=== PATIENT | male | born 1955 | race Hispanic/Latino ===

== ENCOUNTER 2017-05-18 01:15 | Inpatient (IN) | payer MEDICAID, SELFPAY ==
[2017-05-18 03:27] LABS: #Lymphocytes 1.2 thou/uL (1.20-3.40); #Monocytes 0.7 thou/uL (0.11-0.59); #Neutrophils 4.5 thou/uL (1.40-6.50); %Basophils 0.4 % (0.0-1.0); %Eosinophils 0.7 % (0.0-10.0); %Lymphocytes 18.4 % (21.0-51.0); %Monocytes 10.6 % (0.0-10.0); Hematocrit 36.1 % (42.0-52.0); Mean Platelet Volume 8.5 fL (7.4-10.4); Red Blood Cell (RBC) Count 3.63 mill/uL (4.70-6.10); White Blood Cell (WBC) Count 6.5 thou/uL (4.8-10.8)
[2017-05-18 03:47] LABS: ALT (SGPT) 83 U/L (8-55); AST (SGOT) 82 U/L (5-34); Alkaline Phosphatase 113 U/L (40-150); Anion Gap 14 mmol/L (10-20); BUN (Urea Nitrogen) 7 mg/dL (8.4-25.7); Bilirubin, Total 0.4 mg/dL (0.2-1.2); Calc. Creatinine Clearance 0 mL/min (70-130); Calcium 8.5 mg/dL (7.8-10.44); Carbon Dioxide 20 mmol/L (22-29); Chloride 102 mmol/L (98-107); Estimated GFR-MDRD 83; Globulin 3.9 g/dL (2.4-3.5); Magnesium 1.7 mg/dL (1.6-2.6); Protein, Total 6.9 g/dL (6.0-8.3)
[2017-05-18 03:51] LABS: Troponin I Less than 0.010 ng/mL (< 0.028)
[2017-05-18] MEDS ORDERED: Multivitamins, Adult 10 ML, Thiamine HCl 100 MG, Folic Acid 1 MG in Dextrose 5 %-0.45 %... IV SCH ×4 (05:00)
[2017-05-18 06:17] LABS: Bilirubin Negative (Negative); Blood, Urine Negative (Negative); Glucose, Urine (Dipstick) >=1000 mg/dL (Negative); Ketone, Urine Negative (Negative); Nitrite Negative (Negative); Protein, Urine (Dipstick) Negative (Neg-Trace); Urobilinogen 0.2 mg/dL (0.2-1.0)
--- NOTE | 2017-05-18 08:20 | RAD ---
PORTABLE CHEST: HISTORY: Chest pain. The patient was found down. FINDINGS: There is patchy atelectasis and/or infiltrate in the right lung base. There is also a small right-si de pneumothorax seen in the right apex and along the right lateral chest wall estimated in the 15-20% range. The left lung appears clear. Heart and mediastinum unremarkable. IMPRESSION: 1. Right pneumothorax. 2. Right basilar atelectasis or infiltrate. Findings were discussed with Dr. Cuevas. CODE CR POS: [facility]
[2017-05-18] MEDS ORDERED: Piperacillin/Tazobactam 3.375 GM in Sodium Chloride 0.9% 100 ML IVPB ONE (08:30)
--- NOTE | 2017-05-18 08:43 | HP ---
PRIMARY CARE PHYSICIAN: The patient states he does not have a primary care physician. CHIEF COMPLAINT: Found down at home. HISTORY OF PRESENT ILLNESS: The history of present illness is taken from the patient, who does not r emember much about the event, so therefore, the history is somewhat limited. The patient admits that he was drinking at home yesterday and then just basically fell down. He is not really sure what hap pened after that, but says that family brought him to the hospital. It is reported by the ER physici cora that he had an unwitnessed fall at home and they are unclear whether or not he hit anything on his head or hit anything on its way down. The patient says that he does have some pain on his right doris e and his right ribs, but otherwise no complaints. He denies having any complaints prior to the fall , such as having chest pain or shortness of breath. He denies any extremity weakness. He denies fee ling dizzy or lightheaded and currently he has basically no complaints. A CT scan was done in the ER to rule out any significant head injury or bleed. There is no evidence of any subdural; however, th ere was a finding concerning in the left putamen, a hypodensity of indeterminate age or indeterminate hypodensity in the left putamen and unclear whether or not this represents an area of ischemia, so t herefore he is being placed in observation for possible acute stroke. REVIEW OF SYSTEMS: CONSTITUTIONAL: There have been no fevers, chills, no night sweats, no weight lo ss. HEENT: He denies any headaches, no dizziness, no visual changes, no sore throat, rhinorrhea, ne ck pain, no adenopathy. PULMONARY: No hemoptysis, no cough, no wheezing. CARDIOVASCULAR: He denie s any chest pain, no shortness of breath, no PND, no orthopnea. GASTROINTESTINAL: No abdominal pain , no nausea, no vomiting, no change in bowels. GENITOURINARY: No urinary frequency, hematuria, no h esitancy. NEUROLOGIC: No focal weakness. No seizures. PSYCHIATRIC: No symptoms of anxiety or dep ression. SKIN AND INTEGUMENT: No skin changes. No rash. PAST MEDICAL HISTORY: Significant for diabetes mellitus type 2, hypertension, hepatitis C. 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 PAST SURGICAL HISTORY: He has had toe amputation on the first and second toe that was in 2015. ALLERGIES: No known drug allergies. SOCIAL HISTORY: He denies smoking to me. He says that he drinks about 7 beers daily. He is single, has 3 children. CODE STATUS: FULL CODE. FAMILY HISTORY: He denies any history of any chronic medical illnesses, this was asked and reviewed. MEDICATIONS: He says he is not currently on any medications. PHYSICAL EXAMINATION: GENERAL: He is alert and oriented x4. He appears to be in no acute distress. VITAL SIGNS: Blood pressure was 125/77, heart rate 80, respiratory rate is 16, temperature is 97.6. HEENT: Pupils are equal, round, and reactive. Extraocular muscles are intact. His sclerae are anic teric. Throat: There is no erythema, no exudates. NECK: No adenopathy, no bruits. LUNGS: Clear. There is no wheezing, no rales. CARDIOVASCULAR: He has normal S1, S2. There is no S3 or S4. No murmurs, clicks. No rubs. ABDOMEN: Soft, nontender, nondistended. Positive for bowel sounds. No rebound, no guarding. EXTREMITIES: There is no edema. NEUROLOGIC: Neurologically, his cranial nerves II-XII are intact. He has good upper and lower extre mity strength. It is symmetric and even and essentially nonfocal. LABORATORY DATA: White blood cell count 6.5, hemoglobin 12.3, hematocrit 36.1, platelet count is 125 . INR is 1.3. Sodium 132, potassium 3.7, chloride is 102, CO2 is 20, BUN is 7, creatinine 0.93, glu cose was 501. UA was negative. Plasma alcohol level was 173 mg per deciliter. ASSESSMENT AND PLAN: 1. This is a 61-year-old gentleman who was admitted status post a fall at home. He was noted to hav e a very high blood alcohol level, actually in the toxic range. He also had a very high blood glucos e level as well; however, thankfully there was no evidence of diabetic ketoacidosis and also had a CT scan showing an area in the left putamen which could represent an acute stroke. The patient will be placed in observation. We will be obtaining an MRI as well as a carotid Doppler and echo to rule ou t cerebrovascular accident. He has a history of diabetes and hypertension which his diabetes appears to be grossly out of control. He admits to taking absolutely no medications and also admits to not seeing any physicians lately. For the plan regarding his diabetes, we will review his old record and start him back on the medications that he had been previously receiving. It appears as if he had be en on Lantus insulin in the past and we will also place him on a sliding scale. I suspect that he wo uld benefit from an SHELLEY inhibitor as well with regards to both diabetes and for hypertension. We james l place him on a low dose aspirin. 2. For chronic alcohol abuse, he will be placed on thiamine, folate, and multivitamins either IV or orally and place him on withdrawal precautions and once he is more stabilized, we will do some brief counseling on alcohol abuse and he also would likely benefit from case management to determine what s ome of his outpatient medical needs are.
--- NOTE | 2017-05-18 10:16 | RAD ---
PORTABLE CHEST: HISTORY: Followup pneumothorax. COMPARISON: Exam performed at 2:54 a.m. FINDINGS: Small right pneumothorax again noted. This is seen in the right apex and along the right lateral basilio st wall, unchanged from the earlier film. Possibly some mild right basilar atelectasis which is less pronounced on the current study. No acute interval change. IMPRESSION: Right pneumothorax again seen without significant interval change. POS: [facility]
[2017-05-18 10:58] LABS: Troponin I 0.022 ng/mL (< 0.028)
--- NOTE | 2017-05-18 12:16 | CT ---
PRELIMINARY REPORT/[facility]/EMERGENCY AFTER HOURS PROCEDURE: Addendum created by Alexander Correa MD on 05/18/2017 5:41 AM Central Time ([place] & [place]) THIS REPORT CONTAINS FINDINGS THAT MAY BE CRITICAL TO PATIENT CARE. The findings and recommendation w ere verbally communicated via telephone conference with BOO NEWSOME at 5:41 AM PSYCHIATRIC NURSING AIDE on 05/18/2017. T he findings and recommendation were acknowledged and understood. Initial Report created on 05/18/2017 5:27 AM Central Time ([place] & [place]) EXAM: CT Head Without Intravenous Contrast CLINICAL HISTORY: 61 years old, male; Injury or trauma; Fall; Initial encounter; Abrasion; Not specified; Patient HX: M 61 presented to ed by ems for unwitnessed fall at home. Pt reports r chest pain, probably from hittin g something on the way down. Family reports they found him on the floor after unwitnessed fall. Pt re ports he was drinking tonight around 8 - 10 beers, which he never does. Ems reports patient had d sti ck of 574. 1 l of ns was given in transit. TECHNIQUE: Axial computed tomography images of the head/brain without intravenous contrast. COMPARISON: No relevant prior studies available. FINDINGS: Mild cerebral volume loss. Hypodensity in the putamen and subinsula on the left. Chronic small vessel disease. No intracranial hemorrhage. No mass, mass effect or midline shift. No hydrocephalus or extra-axial fluid collections. Ventricles, cortical sulci and basal cisterns are appropriate for age without effacement. Posterior fossa sana cisterna magna present. Martines-white matter differentiation is preserved. No dense MCA sign. Atherosclerosis of the intracranial vasculature. Orbits are unremarkable. Paranasal sinuses are clear. Mastoid air cells are clear. No acute fracture. Extra calvarial soft tissues unremarkable. IMPRESSION: Indeterminate hypodensity in the putamen and subinsula on the left may represent ischemia in the righ t clinical setting. Correlate clinically and recommend MRI for further evaluation. Thank you for allowing us to participate in the care of your patient. Dictated and Authenticated by: Alexander Correa MD 05/18/2017 5:27 AM Central Time ([place] & [place]) FINAL REPORT CT HEAD WITHOUT CONTRAST: Multiple axial tomograms were obtained through the head without IV enhancement. Ventricles are normal size and position. There is an abnormal area of low attenuation in the left basal ganglia involving region of the putame n. This is suspicious for a subacute lacunar infarct. Recommend MRI to assess for restricted diffus ion. These findings were described on preliminary report and I am in agreement with the preliminary report. POS: [facility]
--- NOTE | 2017-05-18 14:58 | ER ---
DATE OF SERVICE: 05/18/2017 HISTORY OF PRESENT ILLNESS: Mr. Florence is a 61-year-old gentleman, who was drinking at home yeste rday and fell. He has been evaluated with a CT of his head, which shows multifocal undetermined age infarcts. He also was found on chest x-ray to have a small right pneumothorax. This was at 2:00 a.m . We repeated his chest x-ray at 9:30 and his right-sided pneumothorax is unchanged. The patient is currently resting comfortably in the emergency department without chest pain, shortnes s of breath, or other complaints. PAST MEDICAL HISTORY: 1. Diabetes mellitus. 2. Hypertension. 3. Hepatitis C. PAST SURGICAL HISTORY: Amputation of the first and second toes of the foot. ALLERGIES: None. SOCIAL HISTORY: He drinks a significant amount of alcohol and does not use tobacco. MEDICATIONS: None. PHYSICAL EXAMINATION LUNGS: Clear bilaterally. HEART: Rhythm is regular. ABDOMEN: Soft and nontender. EXTREMITIES: No edema. CHEST X-RAY: I have reviewed his chest x-ray series. ASSESSMENT AND PLAN: Right-sided pneumothorax after a fall. He has had no progression of his pneumo thorax over the course of 7 hours. He is being admitted for his neurological findings. We will repe at his chest x-ray tomorrow in the morning.
[2017-05-18] MEDS ORDERED: Lorazepam 2 MG/ML VIAL SLOW IVP PRN (14:59)
[2017-05-18] MEDS ORDERED: hydrALAZINE 20 MG/ML VIAL SLOW IVP PRN (14:59)
[2017-05-18] MEDS ORDERED: Dextrose 5% in Water 1,000 ML IV PRN (14:59)
[2017-05-18] MEDS ORDERED: Dextrose 50% Abboject 50 ML SYRINGE SLOW IVP PRN (14:59)
[2017-05-18] MEDS ORDERED: Acetaminophen 325 MG TAB PO PRN (14:59)
[2017-05-18] MEDS ORDERED: Aspirin 81 mg Enteric Coated Tablet PO SCH (15:30)
[2017-05-18] MEDS ORDERED: Famotidine 20 MG TAB PO SCH (15:30)
[2017-05-18] MEDS ORDERED: ADMIXTURE FEE SC SCH (15:30)
[2017-05-18] MEDS ORDERED: INSULIN DETEMIR SC SCH (15:30)
[2017-05-18 16:33] VITALS: BMI 19.3
--- NOTE | 2017-05-18 16:48 | ULT ---
ULTRASOUND WITH DOPPLER DUPLEX CAROTID: DATE: 05-18-17 HISTORY: 61-year-old male status post acute CVA. Technique: Grayscale, color flow, and spectral analysis of the major arteries of neck. FINDINGS: Little or no plaque identified. Highest peak systolic velocities in the internal carotid arteries are 75 cm/s on the right, and also 75 cm/s on the left. The ICA/CCA ratios are 0.8 on the right and 0.7 cm on the left. The vertebral artery flow is antegrade bilaterally. IMPRESSION: No hemodynamically significant stenosis. POS: [facility]
[2017-05-18] MEDS: HumaLOG 300 UNITS/3 ML VIAL SC PRN (18:04)
[2017-05-18] MEDS: ADMIXTURE FEE SC SCH (22:05)
[2017-05-18] MEDS: INSULIN DETEMIR SC SCH (22:05)
[2017-05-18] MEDS: Atorvastatin Calcium 10 MG TAB PO SCH (22:05)
[2017-05-18] MEDS: Famotidine 20 MG TAB PO SCH (22:05)
[2017-05-19 05:46] LABS: #Basophils 0.1 thou/uL (0.0-0.2); #Eosinphils 0.1 thou/uL (0.0-0.7); #Lymphocytes 3.3 thou/uL (1.20-3.40); #Monocytes 1.6 thou/uL (0.11-0.59); #Neutrophils 7.6 thou/uL (1.40-6.50); %Basophils 0.4 % (0.0-1.0); %Eosinophils 0.5 % (0.0-10.0); %Lymphocytes 26.2 % (21.0-51.0); %Monocytes 12.4 % (0.0-10.0); Hematocrit 34.6 % (42.0-52.0); Mean Platelet Volume 7.9 fL (7.4-10.4); Red Blood Cell (RBC) Count 3.52 mill/uL (4.70-6.10); White Blood Cell (WBC) Count 12.6 thou/uL (4.8-10.8)
[2017-05-19 06:03] LABS: Anion Gap 8 mmol/L (10-20); BUN (Urea Nitrogen) 10 mg/dL (8.4-25.7); Calc. Creatinine Clearance 93 mL/min (70-130); Calcium 8.5 mg/dL (7.8-10.44); Carbon Dioxide 27 mmol/L (22-29); Chloride 103 mmol/L (98-107); Cholesterol 86 mg/dl (< 200 Desired); Estimated GFR-MDRD Greater than 90; LDL Cholesterol, Calculated 44 mg/dL
--- NOTE | 2017-05-19 08:31 | RAD ---
FRONTAL RADIOGRAPH CHEST: DATE: 05/19/17. COMPARISON: 05/18/17. HISTORY: Right-sided pneumothorax. FINDINGS: A right-sided pneumothorax is again noted. Comparison to the prior study is somewhat limited secondary to shallow inspiration on this exam. The right-sided pneumothorax appears similar when compared to the prior examination, although it may hav e slightly increased in size, particularly its inferior/lateral component. There is no mediastinal s hift. The left lung appears clear. No left-sided pneumothorax. IMPRESSION: Stable to slightly larger right-sided pneumothorax. POS: [facility]
[2017-05-19] MEDS: ADMIXTURE FEE SC SCH ×2 (09:34→21:01)
[2017-05-19] MEDS: INSULIN DETEMIR SC SCH ×2 (09:34→21:01)
[2017-05-19] MEDS: Famotidine 20 MG TAB PO SCH ×2 (09:35→21:01)
[2017-05-19] MEDS: Aspirin 81 mg Enteric Coated Tablet PO SCH (09:35)
[2017-05-19] MEDS ORDERED: Potassium Chloride 20 MEQ TAB PO SCH (11:00)
--- NOTE | 2017-05-19 11:13 | PDOC.PN ---
- Subjective Encounter Start Date: 05/19/17 Encounter Start Time: 11:11 Mr. Florence was seen today in follow-up. He does not have any complaints. He denies chest pain or difficulty breathing. He denies feeling dizzy or off balance. - Objective Resuscitation Status: Resuscitation Status FULL:Full Resuscitation MAR Reviewed: Yes Vital Signs & Weight: Vital Signs (12 hours) Temp Pulse Resp BP BP Pulse Ox 05/19/17 10:00 133/62 05/19/17 08:00 98.4 F 80 20 94 L 05/19/17 07:58 98.4 F 80 20 133/62 94 L 05/19/17 04:41 99 F 82 18 112/56 L 92 L 05/19/17 02:55 134/64 05/19/17 00:38 99.5 F 87 18 134/64 93 L Weight Weight 121 lb 14.4 oz I&O: 05/18/17 05/19/17 05/20/17 06:59 06:59 06:59 Intake Total 250 480 Balance 250 480 Result Diagrams: 05/19/17 05:14 05/19/17 05:14 Additional Labs: Accuchecks 05/19/17 05/18/17 05/18/17 06:10 21:12 17:04 POC Glucose 75 193 H 273 H Phys Exam - Physical Examination HEENT: PERRLA Respiratory: no wheezing, no rales, no rhonchi, clear to auscultation bilateral Cardiovascular: RRR, no significant murmur Gastrointestinal: soft, non-tender, positive bowel sounds Musculoskeletal: no edema Dx/Plan (1) Ataxia Code(s): R27.0 - ATAXIA, UNSPECIFIED Status: Acute (2) Alcohol intoxication Status: Acute (3) Fatty liver Code(s): K76.0 - FATTY (CHANGE OF) LIVER, NOT ELSEWHERE CLASSIFIED Status: Acute (4) Hepatitis C Code(s): B19.20 - UNSPECIFIED VIRAL HEPATITIS C WITHOUT HEPATIC COMA Status: Acute (5) Hypertension Code(s): I10 - ESSENTIAL (PRIMARY) HYPERTENSION Status: Acute - Plan * Ataxia, and feeling off balance- this has improved. Still awaiting MRI results , but suspect this was mainly a combination of alcohol intoxication, and diabetic peripheral neuropathy * DM- blood glucose is much improved- will discharge him on NPH insulin * Continue aspirin , low dose daily * Home after MRI, as patient's deficits have completely resolved. If he infact has a CVA, then will add a statin at discharge.
[2017-05-19] MEDS: HumaLOG 300 UNITS/3 ML VIAL SC PRN ×2 (12:12→17:47)
[2017-05-19] MEDS: Multivitamins, Adult 10 ML, Folic Acid 1 MG, Thiamine HCl 100 MG in Dextrose 5 %-0.45 %... IV SCH ×4 (12:13)
--- NOTE | 2017-05-19 19:28 | MRI ---
MRI BRAIN: Date: 05-19-17 Provided Clinical History: TIA. FINDINGS: Comparison is made with the CT examination dated 05-18-17. The ventricular system appears normal in size and morphology. There is no evidence for intracranial h emorrhage or mass effect. There is increased signal intensity on the diffusion weighted sequences inv olving the left lentiform nucleus, demonstrating T2 shine through based on the ADC map and FLAIR sequ ence. There is, however, restricted diffusion seen within the left caudate nucleus as well as left ce ntrum semiovale, compatible with recent infarction. No additional significant intracranial signal abnormality is evident. Occasional foci of FLAIR and T2 hyperintensity involve the cerebral white matter compatible with chronic microvascular ischemic clancy ge. Appropriate flow voids are seen within the major intracranial vessels. The extracranial soft tissues and calvarial marrow signal demonstrate an unremarkable MR appearance with the exception of minimal p aranasal sinus fluid. IMPRESSION: Restricted diffusion compatible with recent infarction involving the left caudate head and centrum se miovale with remote lacunar infarction involving the left lentiform nucleus. POS: [facility]
[2017-05-19] MEDS: Atorvastatin Calcium 10 MG TAB PO SCH (21:01)
--- NOTE | 2017-05-19 23:40 | CON ---
DATE OF CONSULTATION: 05/19/2017 REFERRING PROVIDER: Dr. Bam Asencio. REASON FOR CONSULTATION: Stroke. HISTORY OF PRESENT ILLNESS: Mr. Florence is a pleasant 61-year-old male who has been consu lted for evaluation of stroke. History is obtained from patient's medical chart as well as patient. Apparently, patient was drinking at home yesterday and he fell down. He was brought to the emergenc y room and the family had reported that it was unwitnessed fall and it is not sure whether he had any weakness or not. His blood alcohol level was within toxic range. He had a CT head without contrast done, which showed some hypodensity in the left putamen for which we are being consulted for further evaluation. He did not have any focal weakness. There was no speech changes or vision changes. He did not complaining of any headache, chest pain, palpitation, nausea, vomiting, abdominal pain. PAST MEDICAL HISTORY: Significant for hypertension, diabetes, hepatitis C. PAST SURGICAL HISTORY: Significant for digit amputation on the left hand as well as in the toes. SOCIAL HISTORY: He drinks 7 beers on a daily basis. He denies smoking. He denies illicit drug use. FAMILY HISTORY: Noncontributory. CURRENT MEDICATIONS: Please review MAR. ALLERGIES: No known drug allergies. REVIEW OF SYSTEMS: As mentioned above in the HPI, otherwise negative. PHYSICAL EXAMINATION: VITAL SIGNS: Blood pressure of 171/81, pulse of 85, temperature of 98.9, respirations of 20, O2 sats of 95% on room air. GENERAL: Well-developed, well-nourished male in no apparent distress. RESPIRATORY: Clear to auscultation bilaterally. CARDIOVASCULAR: Regular rate and rhythm. NEUROLOGIC: Mental status: Patient is awake, alert, oriented x3. Speech and language: Fluent spee ch. Cranial nerves: Pupils are 3 mm and reactive. Visual will are intact. External muscles are intact. No nystagmus is noted. Face is symmetric. Tongue and uvula midline. Motor exam showed nor mal tone and bulk with 5/5 strength in both upper extremities. Sensory: Sensation is intact and sym metric. Deep tendon reflexes 2+ reflexes in both upper and lower extremities. Babinski: Plantar re sponses flexion bilaterally. Coordination intact to loyldp-yyrz-vwaldm tapping bilaterally. LABORATORY DATA: Reviewed, which included CBC, CMP, lipid profile, urinalysis, and plasma alcohol le pan, which is significant for WBC of 12.6, hemoglobin 11.6, hematocrit of 34.6. Sodium 135, potassiu m 3.2, glucose of 182, plasma alcohol level was 173 mg per dL. IMAGING STUDIES: MRI brain without contrast was reviewed, which showed acute to subacute left basal ganglia ischemic infarct. Echocardiogram results were reviewed, which showed EF of more than 65% wit h mild aortic wall thickening and aortic regurgitation with mitral valve regurgitation, otherwise nor mal. Carotid Doppler results were reviewed, which showed no hemodynamically significant stenosis. IMPRESSION: 1. Left basal ganglia ischemic infarct. 2. Hypertension. 3. Heavy alcohol use. ASSESSMENT AND PLAN: Mr. Florence is a pleasant 61-year-old male who presented with the fa ll, he was found to have acute to subacute left basal ganglia ischemic infarct. This is likely secon james to poorly controlled risk factors. I have discussed with him at length and explained to him attila t he needs to control his blood pressure, diabetes, cholesterol, and avoid drinking alcohol. I agree with starting him on aspirin 325 mg daily for secondary stroke prevention. Consult PT, OT, speech t herapy for rehab evaluation. If physical and occupational therapy is deemed, the patient can be disc harged as an outpatient for outpatient therapy then the patient is okay to be discharged to home.
[2017-05-20] MEDS ORDERED: Metoprolol Tartrate 25 MG TAB PO SCH ×2 (02:00→09:00)
--- NOTE | 2017-05-20 08:36 | RAD ---
RADIOGRAPH CHEST 1 VIEW: Date: 05/20/2017 Time: 8:13 a.m. HISTORY: A 61-year-old male with right pneumothorax. Follow-up. COMPARISON: 05/19/2017 at 7:20 a.m. FINDINGS: The right pneumothorax has decreased in size, and currently occupies approximately 10-15% volume of r ight hemithorax. The right basilar infiltrate is unchanged. There is interval worsening of left bas ilar infiltrate. No cardiomegaly or pulmonary edema. Lateral costophrenic angles are not effaced. IMPRESSION: 1. Interval decrease in size of right pneumothorax. 2. Interval worsening of left basilar infiltrate. 3. Stable right basilar infiltrate. CARLOS [] POS: [facility]
--- NOTE | 2017-05-20 09:33 | PDOC.PN ---
- Subjective Encounter Start Date: 05/20/17 Encounter Start Time: 09:31 Mr. Florence was seen today in follow-up of acute CVA and Fall. He notes some pain on the right side of his chest when he takes in a deep breath. He says it' s mild however. - Objective Resuscitation Status: Resuscitation Status FULL:Full Resuscitation MAR Reviewed: Yes Vital Signs & Weight: Vital Signs (12 hours) Temp Pulse Resp BP Pulse Ox 05/20/17 08:00 99.1 F 74 16 141/78 H 95 05/20/17 03:56 99.1 F 75 18 158/77 H 97 Weight Weight 121 lb 14.4 oz I&O: 05/19/17 05/20/17 05/21/17 06:59 06:59 06:59 Intake Total 250 1260 1230 Balance 250 1260 1230 Result Diagrams: 05/19/17 05:14 05/19/17 05:14 Additional Labs: Accuchecks 05/20/17 05/19/17 05/19/17 05:46 20:59 17:13 POC Glucose 109 260 H 182 H 05/19/17 11:55 POC Glucose 239 H Phys Exam - Physical Examination HEENT: PERRLA Respiratory: no wheezing, no rales, no rhonchi, clear to auscultation bilateral Cardiovascular: RRR, no significant murmur Gastrointestinal: soft, non-tender, positive bowel sounds Musculoskeletal: no edema Dx/Plan (1) Ataxia Code(s): R27.0 - ATAXIA, UNSPECIFIED Status: Acute (2) Alcohol intoxication Status: Acute (3) Fatty liver Code(s): K76.0 - FATTY (CHANGE OF) LIVER, NOT ELSEWHERE CLASSIFIED Status: Acute (4) Hepatitis C Code(s): B19.20 - UNSPECIFIED VIRAL HEPATITIS C WITHOUT HEPATIC COMA Status: Acute (5) Hypertension Code(s): I10 - ESSENTIAL (PRIMARY) HYPERTENSION Status: Acute - Plan * Acute CVA- Neurology input appreciated- will increase the aspirin dose to 325mg, and will add a statin * Traumatic Pneumothorax- CV- surgery is managing- repeat CXR was noted * HTN- metoprolol was added last night, and will also add an SHELLEY-I given he is diabetic * DM- blood glucose is stable- continue insulin.
[2017-05-20] MEDS: Famotidine 20 MG TAB PO SCH (10:47)
[2017-05-20] MEDS: Aspirin 81 mg Enteric Coated Tablet PO SCH (10:47)
[2017-05-20] MEDS: Multivitamins, Adult 10 ML, Folic Acid 1 MG, Thiamine HCl 100 MG in Dextrose 5 %-0.45 %... IV SCH ×4 (10:47)
[2017-05-20] MEDS: ADMIXTURE FEE SC SCH (10:48)
[2017-05-20] MEDS: INSULIN DETEMIR SC SCH (10:48)
[2017-05-20] MEDS: HumaLOG 300 UNITS/3 ML VIAL SC PRN ×2 (12:42→16:48)
[2017-05-20 15:48] VITALS: TEMP 98.1
[2017-05-20 18:00] VITALS: BP 170/70
--- NOTE | 2017-05-21 02:20 | DIS ---
DATE OF ADMISSION: 05/18/2017 DATE OF DISCHARGE: 05/20/2017 The patient does not have a primary care physician. DISCHARGE DISPOSITION: Home. PRIMARY DISCHARGE DIAGNOSES: 1. Acute left caudate cerebrovascular accident. 2. Diabetes mellitus, uncontrolled. 3. Alcohol abuse. 4. Traumatic pneumothorax. 5. Hypertension. 6. History of hepatitis C. DISCHARGE MEDICATIONS: Include aspirin 325 mg p.o. daily, simvastatin 20 mg daily, metoprolol 25 mg twice a day, lisinopril 2.5 mg daily, NovoLog insulin 10 units twice a day, ciprofloxacin 500 mg twic e a day for 7 days. PROCEDURES DONE DURING THE ADMISSION: The patient had a CT scan of the brain in which there was an i ndeterminate hypodensity in the putamen and the sub insula on the left, which may represent ischemia in the right setting. The patient also had an echocardiogram in which the ejection fraction was carlos mated at 65%. There was normal right ventricular size and function. The patient also had bilateral carotid Dopplers showing no hemodynamically significant stenosis. CODE STATUS: FULL CODE. ALLERGIES: No known drug allergies. HOSPITAL COURSE: Mr. Florence is a pleasant 61-year-old gentleman, who was brought to the emergency room after he was found down at home. He apparently had been drinking at least 7 or 8 beers prior t o the fall. A CT scan showed an area in the left putamen, which was worrisome for a possible stroke. There was no evidence of any bleed or hemorrhage. He was brought in for observation. Also in the emergency room, it was determined he had a traumatic pneumothorax on the right side as well. He was evaluated by Vascular Surgery and Thoracic Surgery regarding this. With regards to the stroke, the p atpoly was found to have a stroke documented by MRI of the brain, carotid Dopplers, as well as an ech o was obtained, both of which were essentially negative. There was no evidence of any atrial fibrill ation via telemetry. He was placed on aspirin, statin, and his blood pressure was managed, also he h ad been noncompliant with all medications and was started back on insulin. He was seen by case manag emjohanne to help with prescription medications. Apparently on a previous admission, paperwork was suppl ied to the patient to help with disability. With regards to the pneumothorax, this was felt that it should resolve spontaneously without any surgical intervention or chest tube and was improving by the time of discharge; however, there was some area of atelectasis on x-ray and he will be discharged ho mo on ciprofloxacin for this. The patient was subsequently discharged home in stable condition to ve a close outpatient followup.
[2017-05-21] MEDS ORDERED: Lisinopril 2.5 MG TAB PO SCH (09:00)
--- NOTE | 2017-05-31 11:18 | EKG ---
Test Reason : Blood Pressure : / mmHG Vent. Rate : 090 BPM Atrial Rate : 090 BPM P-R Int : 116 ms QRS Dur : 078 ms QT Int : 412 ms P-R-T Axes : 042 001 017 degrees QTc Int : 504 ms Normal sinus rhythm Prolonged QT Abnormal ECG Confirmed by BOO NEWSOME M.D. ([id number]), industrial editor SETH GAMEZ ([id number] on 05/31/2017 11:18:17 AM Referred By: Confirmed By:BOO NEWSOME M.D.
== END 2017-05-20 18:04 | disposition home or self-care (01) | DRG 65 ==
LOC: ERS 01:15 → ERHOLD 07:55 → 2SE 15:04
PROVIDERS: ADMIT Internal Medicine; ATTEND Internal Medicine
DX: I63.9 Cerebral infarction, unspecified (principal); S27.0XXA Traumatic pneumothorax, initial encounter; J98.11 Atelectasis; E11.65 Type 2 diabetes mellitus with hyperglycemia; F10.10 Alcohol abuse, uncomplicated; W19.XXXA Unspecified fall, initial encounter; I10 Essential (primary) hypertension; B19.20 Unspecified viral hepatitis C without hepatic coma; Z91.14 Patient's other noncompliance with medication regimen
CPT/HCPCS: 36415; 36416; 70450; 70551; 71010; 80048; 80053; 80061; 80307; 81003; 82553; 83735; 84484; 85025; 85610; 87040; 87086; 93005; 93306; 93880; 96361; 96365; 96366; 96368; A4216; G8978-GP-CI; G8979-GP-CI; G8980-GP-CI; G8987-GO-CH; G8988-GO-CH; G8989-GO-CH; J0360; J1815; J1956; J2543; J3411; J7042; J7050

== ENCOUNTER 2017-09-04 20:06 | Inpatient (IN) | payer SELFPAY ==
[2017-09-04 22:05] LABS: #Eosinphils 0.1 thou/uL (0.0-0.7); #Lymphocytes 2.2 thou/uL (1.20-3.40); #Monocytes 1.1 thou/uL (0.11-0.59); #Neutrophils 6.6 thou/uL (1.40-6.50); %Basophils 0.5 % (0.0-1.0); %Eosinophils 0.9 % (0.0-10.0); %Lymphocytes 21.9 % (21.0-51.0); %Monocytes 10.5 % (0.0-10.0); %Neutrophils 66.2 % (42.0-75.0); Hemoglobin 13.1 g/dL (14.0-18.0); Mean Corpuscular HGB CONC 34.7 g/dL (32.0-36.0); Mean Corpuscular Hemoglobin 32.8 pg (27.0-31.0); Mean Corpuscular Volume 94.6 fl (80.0-94.0); Mean Platelet Volume 7.2 fL (7.4-10.4); Platelet Count 207 thou/uL (130-400); RBC Distribution Width 13.1 % (11.5-14.5)
[2017-09-04 22:24] LABS: ALT (SGPT) 38 U/L (8-55); AST (SGOT) 44 U/L (5-34); Albumin 3.7 g/dL (3.5-5.0); Alkaline Phosphatase 155 U/L (40-150); Anion Gap 12 mmol/L (10-20); BUN (Urea Nitrogen) 14 mg/dL (8.4-25.7); Bilirubin, Total 0.8 mg/dL (0.2-1.2); Calc. Creatinine Clearance 0 mL/min (70-130); Calcium 9.3 mg/dL (7.8-10.44); Carbon Dioxide 25 mmol/L (22-29); Chloride 96 mmol/L (98-107); Estimated GFR-MDRD 73; Globulin 4.6 g/dL (2.4-3.5); Glucose 460 mg/dL (70-105); Protein, Total 8.3 g/dL (6.0-8.3); Sodium 129 mmol/L (136-145)
--- NOTE | 2017-09-04 22:27 | RAD ---
LEFT FOOT THREE VIEWS: 09/04/17 HISTORY: 62-year-old male with history of pain for one week. COMPARISON: 12/09/16 Status post amputation changes of the first and second toes. Prominent vascular calcification. No acu te fracture or dislocation. No significant change from the prior study. IMPRESSION: Status post amputation changes of the first and second toe. No fracture or dislocation. Marked vascul ar calcifications. Stable from prior study. POS: JUAN
[2017-09-05 00:04] LABS: Bilirubin Negative (Negative); Blood, Urine Small (Negative); Clarity CLEAR (Clear); Glucose, Urine (Dipstick) >=1000 mg/dL (Negative); Leukocyte Negative (Negative); Nitrite Negative (Negative); Protein, Urine (Dipstick) 30 mg/dL (Neg-Trace); Specific Gravity, Urine 1.018 (1.002-1.036)
[2017-09-05] MEDS ORDERED: Insulin Regular 300 UNITS/3 ML VIAL ONE (00:05)
[2017-09-05 00:06] LABS: Bacteria/HPF None Seen HPF (None Seen); Hyaline Casts/LPF 0-3 HYALINE CAST LPF (0-3 Hyaline); Squamous Epithelial None Seen HPF (0-3); WBC/HPF None Seen HPF (0-3)
[2017-09-05] MEDS ORDERED: Acetaminophen 325 MG TAB PO PRN (01:20)
[2017-09-05] MEDS ORDERED: Calcium Carbonate 500 MG ChewTAB PO PRN (01:20)
[2017-09-05] MEDS ORDERED: Dextrose 50% Abboject 50 ML SYRINGE SLOW IVP PRN (01:20)
[2017-09-05] MEDS ORDERED: Senokot 8.6 MG TAB PO PRN (01:20)
[2017-09-05] MEDS ORDERED: Ondansetron HCl/PF 4 MG/2 ML Vial IVP PRN (01:20)
[2017-09-05] MEDS ORDERED: Ondansetron ODT 4 MG TAB PO PRN (01:20)
[2017-09-05] MEDS ORDERED: Dextrose 5% in Water 1,000 ML IV PRN (01:20)
[2017-09-05] MEDS ORDERED: Nitroglycerin 0.4 MG TAB (25 Tab Bottle) PO PRN (01:28)
[2017-09-05] MEDS: Sodium Chloride 0.9% 1,000 ML IV SCH ×2 (01:52→17:12)
[2017-09-05] MEDS: Meropenem 1 GM in Sodium Chloride 0.9% 100 ML IVPB SCH ×3 (02:21→17:53)
[2017-09-05] MEDS: hydrALAZINE 20 MG/ML VIAL SLOW IVP PRN (02:24)
--- NOTE | 2017-09-05 02:29 | HP ---
DATE OF ADMISSION: 09/05/2017 The patient was seen on 09/05/2017. PRIMARY CARE PHYSICIAN: None. CHIEF COMPLAINT: Evaluation of drainage from the left foot wound. HISTORY OF PRESENT ILLNESS: The patient is a 62-year-old male with uncontrolled diabetes mellitus ty pe 2, presented to the emergency room with above complaints. The patient was admitted at this facility approximately 4 months ago with unresponsiveness. He was f ound to have acute left caudate CVA with uncontrolled diabetes mellitus type 2. He was started on as pirin along with insulin. Please note that at this time, patient does not take any medications. The patient presented to the emergency room with evaluation of drainage from the left foot wound. Ov er the last one week, he noticed some pain and swelling on the left foot along with redness. The pat poly has a history of left first and the second toe amputation in 2014. He noticed some drainage, wh ich was serosanguineous from the ball of the left foot. He denies any fever or chills. He also descr ibes numbness and tingling of bilateral lower extremities. In the emergency room, initial vital signs showed temperature 98, respiration 18, pulse 102, blood pr essure 199/108 with O2 saturation 96% on room air. His left foot x-ray was negative for any evidence of osteomyelitis. He was started on Zosyn, vancomycin, and Levaquin in the emergency room. PAST MEDICAL HISTORY: 1. Uncontrolled diabetes mellitus type 2. 2. Hypertension. 3. Chronic hepatitis C. 4. History of traumatic pneumothorax in 05/18 from the fall, resolved without any intervention. 5. Acute left CVA, currently not on aspirin. 6. Medication noncompliance. PAST SURGICAL HISTORY: Left first and second toe amputation in 2014. ALLERGIES: No known drug allergies. HOME MEDICATIONS: Reviewed with the patient and none. FAMILY HISTORY: Patient denies any chronic medical illness in his family. SOCIAL HISTORY: He denies any smoking. He drinks socially every week. He has a history of heavy al cohol abuse. REVIEW OF SYSTEMS: The following complete review of systems was negative, unless otherwise mentioned in the HPI or below: Constitutional: Weight loss or gain, ability to conduct usual activities. Sk in: Rash, itching. Eyes: Double vision, pain. ENT/Mouth: Nose bleeding, neck stiffness, pain, te nderness. Cardiovascular: Palpitations, dyspnea on exertion, orthopnea. Respiratory: Shortness of breath, wheezing, cough, hemoptysis, fever or night sweats. Gastrointestinal: Poor appetite, abdom inal pain, heartburn, nausea, vomiting, constipation, or diarrhea. Genitourinary: Urgency, frequenc y, dysuria, nocturia. Musculoskeletal: Pain, swelling. Neurologic/Psychiatric: Anxiety, depressio n. Allergy/Immunologic: Skin rash, bleeding tendency. PHYSICAL EXAMINATION: VITAL SIGNS: As discussed above. GENERAL: A 62-year-old male in no apparent distress. Pain controlled. HEENT: Head: Atraumatic, normocephalic. Sclerae are anicteric. Moist mucous membrane. No oral le pedro. NECK: Supple. No JVD, no carotid bruit. LUNGS: Clear to auscultation bilaterally. No wheezing, rales, or rhonchi. HEART: S1, S2 present, tachycardic. No murmur, rubs, or gallops appreciated. ABDOMEN: Soft, nontender, bowel sounds present. EXTREMITIES: No edema or calf tenderness. There is 1.5 x 1-cm linear and open diabetic ulcer on the ball of the left foot with some erythema over the ankles. There is serosanguineous drainage. Edges were raised and there was some surrounding edema. There was also some erythema around the ulcer. NEUROLOGIC: Grossly nonfocal. Moves all four extremities. There is diminished sensation to bilater al lower extremities. PSYCHIATRY: Alert, awake, oriented x3. SKIN: As discussed above. LYMPH NODES: No palpable lymph nodes in the neck. PERIPHERAL VASCULAR: Radial pulses palpable bilaterally. MUSCULOSKELETAL: No joint swelling or tenderness. LABORATORY AND DIAGNOSTIC FINDINGS: CBC showed WBC 10.0 with hemoglobin 13.1, hematocrit 37.9. Chem istries showed sodium 139 with blood sugar of 460. BUN 14, creatinine 1.04. Beta hydroxybutyrate wa s 0.2. Urinalysis was negative. X-ray of the foot by my review was negative for osteomyelitis or ga s. IMPRESSION: 1. Infected diabetic foot ulcer with surrounding cellulitis. 2. Uncontrolled diabetes mellitus type 2. 3. Medication noncompliance. 4. History of chronic alcohol abuse. 5. Chronic hepatitis C. 6. Uncontrolled hypertension. 7. 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 8. History of acute cerebrovascular accident in 05/2017. PLAN: The patient will be monitored on the medical floor. We will keep him n.p.o. for possible surg ical intervention. We will repeat labs including CRP in a.m. Consult wound care. Insulin sliding s alan with NPH 10 units b.i.d. IV fluids. Consult Infectious Disease, Dr. Kramer. Vancomycin and nolan openem. We will monitor vancomycin levels. Vital signs q.4 hourly for now. The patient was extensively counseled to be compliant with all of his medications. We will restart a spirin due to acute CVA in May. We will also resume lisinopril and metoprolol based on last dis charge summary due to elevated blood pressure. Plan of care was discussed with the patient, he stated understanding.
[2017-09-05] MEDS: Insulin Regular 300 UNITS/3 ML VIAL SC PRN ×2 (05:20→20:31)
[2017-09-05 06:00] LABS: Anion Gap 8 mmol/L (10-20); BUN (Urea Nitrogen) 13 mg/dL (8.4-25.7); Calc. Creatinine Clearance 153 mL/min (70-130); Calcium 8.7 mg/dL (7.8-10.44); Carbon Dioxide 26 mmol/L (22-29); Chloride 104 mmol/L (98-107); Estimated GFR-MDRD Greater than 90; Glucose 182 mg/dL (70-105); Magnesium 1.5 mg/dL (1.6-2.6); Potassium 3.8 mmol/L (3.5-5.1); Sodium 134 mmol/L (136-145)
[2017-09-05 06:21] LABS: Band 5 % (5-11); Hemoglobin 11.5 g/dL (14.0-18.0); Lymphocytes 15 % (21-51); MDiff Complete? YES; Mean Corpuscular HGB CONC 34.3 g/dL (32.0-36.0); Mean Corpuscular Hemoglobin 32.3 pg (27.0-31.0); Mean Platelet Volume 7.5 fL (7.4-10.4); Monocytes 20 % (0-10); Neutrophil 60 % (42-75); PLT Morphology Comment Appears Adequate; Platelet Count 178 thou/uL (130-400); RBC Distribution Width 13.2 % (11.5-14.5); RBC Morphology Normal; Red Blood Cell (RBC) Count 3.57 mill/uL (4.70-6.10); White Blood Cell (WBC) Count 9.9 thou/uL (4.8-10.8)
[2017-09-05] MEDS ORDERED: Magnesium 2 GM/NS 0.9% 50 ML 2 GM in Premix Bag 1 BAG IVPB SCH (07:00)
[2017-09-05] MEDS ORDERED: Magnesium 2 GM/NS 0.9% 100 ML 2 GM in Premix Bag 1 BAG IVPB SCH (07:15)
[2017-09-05] MEDS ORDERED: Enoxaparin Sodium 40 MG/0.4 ML SYRINGE SC SCH (09:00)
[2017-09-05] MEDS: NPH, Human Insulin Isophane 300 UNIT/3 ML VIAL SC SCH ×2 (10:07→20:31)
[2017-09-05] MEDS: Folic Acid 1 MG TAB PO SCH (10:09)
[2017-09-05] MEDS: Lisinopril 10 MG TAB PO SCH ×2 (10:09→20:30)
[2017-09-05] MEDS: Aspirin 325 MG TAB PO SCH (10:09)
[2017-09-05] MEDS: Multivit, Therapeutic 1 TAB PO SCH (10:09)
[2017-09-05] MEDS: Metoprolol Tartrate 25 MG TAB PO SCH ×2 (10:09→20:30)
[2017-09-05] MEDS: Vancomycin HCl 1 GM in Premix Bag 1 BAG IVPB SCH (12:32)
[2017-09-05] MEDS ORDERED: Iopamidol 370 76% 50 ML VIAL FS ONE (13:27)
[2017-09-05] MEDS ORDERED: Lidocaine 1% (PF) 30 ML VIAL ONE (13:42)
[2017-09-05] MEDS ORDERED: Midazolam HCl 2 mg/2 ml Vial ONE (14:07)
[2017-09-05] MEDS ORDERED: Fentanyl 100 MCG/2 ML VIAL ONE (14:07)
[2017-09-05 14:15] VITALS: BMI 24.7
[2017-09-05] MEDS ORDERED: hydrALAZINE 20 MG/ML VIAL ONE (14:18)
--- NOTE | 2017-09-05 14:23 | CON ---
DATE OF CONSULTATION: 09/05/2017 REASON FOR CONSULTATION: Evaluate patient's vascular status in regards to the left foot nonhealing u lcer. HISTORY OF PRESENT ILLNESS: Mr. Florence is a noncompliant diabetic male who has had multiple admis sions with complications from diabetes mellitus. He underwent a left foot toe amputations and debrid ement in 2014. At that time, he was noted to have good ankle dorsalis pedis Doppler signals and a tr iphasic posterior tibial Doppler signal. The patient takes no medicines at home. He has been noncompliant with any sort of medical followup. PAST MEDICAL HISTORY: 1. Diabetes mellitus. 2. Hypertension. 3. Chronic hepatitis C. 4. History of cerebrovascular accident. PAST SURGICAL HISTORY: Amputation of toes in 2014. ALLERGIES: None. MEDICATIONS: None. SOCIAL HISTORY: He does not use tobacco. REVIEW OF SYSTEMS: Not performed due to language barrier - our interview was performed through an in terpreter. PHYSICAL EXAMINATION: GENERAL: This is a diminutive gentleman without complaint. VITAL SIGNS: Temperature is 98.1, pulse is 70 and regular, blood pressure is 172/83. NECK: Supple, without bruit. CHEST: Clear bilaterally. HEART: Rhythm is regular. There are no murmurs. ABDOMEN: Soft and nontender. EXTREMITIES: There is no edema. His left foot is wrapped. VASCULAR: Reveals palpable carotid, radial, and femoral pulses bilaterally. He has Doppler signals only in his right dorsalis pedis and posterior tibial area. The left posterior tibial Doppler signal is biphasic. The dorsalis pedis Doppler signal at the ankle is monophasic. ASSESSMENT AND PLAN: Noncompliant man with history of previous peripheral vascular disease and toe a mputations. He has a nonhealing ulcer on his foot. He has been admitted, started on antibiotics. T he vascular status is in question and we will plan for angiograms to evaluate if we can improve inflo w into his foot today.
--- NOTE | 2017-09-05 16:17 | OP ---
DATE OF OPERATION: 09/05/2017 PREOPERATIVE DIAGNOSES: History of peripheral vascular disease with left foot nonhealing ulcer. POSTOPERATIVE DIAGNOSES: History of peripheral vascular disease with left foot nonhealing ulcer. PROCEDURES: 1. Ultrasound-guided vascular access. 2. Abdominal aortogram. 3. Left common femoral artery angiogram. 4. Left popliteal artery angiogram with runoff. ANESTHESIA: A 1% lidocaine for local/1 mg Versed/25 mcg fentanyl for IV sedation. TOTAL FLUORO TIME: 3.1 minutes. TOTAL CONTRAST: 16 mL. DESCRIPTION OF PROCEDURE: After consent was obtained, the patient was brought to laborer/grade check, placed in supine position on the laborer/grade check table. Appropriate anesthesia monitor was placed. IV sedation was begun. Groins were prepped and draped in usual sterile fashion. Using ultrasound guidance, the righ t groin was anesthetized with 1% lidocaine. Percutaneous access of the common femoral artery was per formed using ultrasound guidance. A micropuncture sheath was placed followed by a 5-Setswana sheath ov er a 0.35 guidewire. Contra catheter was passed in the upper abdominal aorta. Hand-injected aortogr am was performed showing normal aortoiliac, common iliac, internal iliac, and external iliac arteries bilaterally. There was no obstructive disease. Contra catheter was used to guide a [place] guidewi re over the abdominal aortic bifurcation into the iliac arteries. The angled glide catheter was then used to guide the tip of the catheter into the common femoral artery. Hand-injected arteriogram was performed, and using digital angiography contrast was chased from groin down to the knee. Common fe moral, profunda femoris, and superficial femoral arteries were all free of any significant atheroscle rotic encroachment. There was calcification in the vessel gauthier. Angled glide catheter was guided d own to the level of the knee joint. The popliteal artery was then injected with 2 separate views ill uminating the tibial arteries. Anterior tibial, posterior tibial, and peroneal arteries were all wid ajay patent. The peroneal artery terminated at the ankle. Anterior tibial and posterior tibial arter ies passed down onto the foot. The posterior tibial artery terminated just posterior to the posterio r malleolus. The dorsalis pedis terminated at the mid foot with multiple collaterals. Catheters and guidewires were removed. Manual pressure was held for hemostasis. The patient was transferred to r ecovery area in stable condition. This patient has no interventional nor bypassable lesions to aid in the inflow and healing. If he co ntinues to have difficulty with this foot, he will require amputation.
[2017-09-05] MEDS: Enoxaparin Sodium 40 MG/0.4 ML SYRINGE SC SCH (20:30)
[2017-09-05] MEDS: Simvastatin 20 MG TAB PO SCH (20:30)
[2017-09-06] MEDS: Vancomycin HCl 1 GM in Premix Bag 1 BAG IVPB SCH ×2 (00:11→11:27)
--- NOTE | 2017-09-06 01:04 | PDOC.PN ---
- Subjective Encounter Start Date: 09/05/17 Encounter Start Time: 16:00 Subjective: nsg notes rev, aziza ovn, pt seen post procedurally, no new c/o, no new quest -: denies any pain/ numbness/ tingling in his LE - Objective Resuscitation Status: Resuscitation Status FULL:Full Resuscitation Vital Signs & Weight: Vital Signs (12 hours) Temp Pulse Resp BP BP Pulse Ox 09/06/17 00:00 99.6 F 82 20 133/73 97 09/05/17 20:30 129/75 09/05/17 20:27 98.4 F 91 20 97 09/05/17 19:54 98.4 F 91 20 129/75 97 09/05/17 17:30 97.3 F L 87 14 153/81 H 100 Weight Admit Weight 209 lb 7.024 oz Weight 126 lb 6.4 oz I&O: 09/04/17 09/05/17 09/06/17 06:59 06:59 06:59 Intake Total 500 975 Output Total 550 1325 Balance -50 -350 Result Diagrams: 09/05/17 04:22 09/05/17 04:22 Additional Labs: Accuchecks 09/05/17 09/05/17 09/05/17 19:55 11:32 04:36 POC Glucose 231 H 135 H 203 H 09/05/17 03:36 POC Glucose 179 H Phys Exam - Physical Examination Constitutional: NAD thin-appearing lying in bed HEENT: PERRLA, sclera anicteric, oral pharynx no lesions slightly dry mm Respiratory: no wheezing, no rales, no rhonchi, clear to auscultation bilateral limited ant exam Cardiovascular: RRR, no significant murmur, no rub Gastrointestinal: soft, positive bowel sounds did not remove dressing from LLE/ foot to examine during this visit Neurological: moves all 4 limbs Psychiatric: normal affect Dx/Plan - Plan * infected, diabetic foot ulcer * empiric vanc, merrem d1 * apprec ID C/s * apprec surg c/s IDDM * SSI, diabetic diet * chronically poor control hx hepatitis C, appears to be stable HTN, monitor * prn anti hypertensive regimen hx CVA, no new neurological changes from previously described baselines medication noncompliance * places patient at high risk for further medical complications * recommend discussing barriers to compliance with patient as he is noncompliant with almost all aspects of his care including follow up and medications * t/c addressed advanced goals of care with patient as his chronic medical issues develop into end stage medical issues diet: diabetic, cardiac activity: as adrien, will likely need PT eval during hospitalization dvt ppx Review of Systems - Review of Systems Constitutional: sweats - Medications/Allergies Allergies/Adverse Reactions: Allergies Allergy/AdvReac Type Severity Reaction Status Date / Time No Known Allergies Allergy Verified 09/05/17 02:03 Medications: Current Medications Acetaminophen (Tylenol) 650 mg PO Q4H PRN PRN Reason: Headache/Fever or Pain Last Admin: 09/06/17 09:23 Dose: 650 mg Aspirin (Aspirin) 325 mg PO DAILY [facility] Last Admin: 09/06/17 09:25 Dose: 325 mg Calcium Carbonate (Tums) 1,000 mg PO Q4H PRN PRN Reason: Heartburn or Indigestion Dextrose/Water (Dextrose 50%) 25 gm SLOW IVP PRN PRN PRN Reason: Hypoglycemia Enoxaparin Sodium (Lovenox) 40 mg SC 2100 [facility] Last Admin: 09/05/17 20:30 Dose: 40 mg Folic Acid (Folvite) 1 mg PO DAILY [facility] Last Admin: 09/06/17 09:24 Dose: 1 mg Glucagon (Glucagon) 1 mg IM PRN PRN PRN Reason: Hypoglycemia Hydralazine HCl (Apresoline) 10 mg SLOW IVP Q4H PRN PRN Reason: SBP Greater Than 180 Last Admin: 09/05/17 02:24 Dose: 10 mg Dextrose/Water (D5w) 1,000 mls @ 0 mls/hr IV .Q0M PRN; As Directed PRN Reason: Hypoglycemia Meropenem 1 gm/ Sodium (Chloride) 100 mls @ 200 mls/hr IVPB 0200,1000,1800 [facility] Last Admin: 09/06/17 09:25 Dose: 100 mls Sodium Chloride (Normal Saline 0.9%) 1,000 mls @ 100 mls/hr IV .Q10H [facility] Stop: 09/08/17 01:31 Last Admin: 09/06/17 07:30 Dose: Not Given Vancomycin HCl 1 gm/ Device 200 mls @ 200 mls/hr IVPB 1200,2359 [facility] Last Admin: 09/06/17 11:27 Dose: 200 mls Insulin Human NPH (Humulin N) 10 unit SC BID [facility] Last Admin: 09/06/17 09:25 Dose: 10 unit Insulin Human Regular (Humulin R) 0 units SC .MILD SLIDING SCALE PRN PRN Reason: Mild Correctional Scale Last Admin: 09/06/17 11:28 Dose: 3 unit Insulin Human Regular (Humulin R) 0 units SC .BEDTIME SLIDING SC PRN PRN Reason: Bedtime Correctional Scale Last Admin: 09/05/17 20:31 Dose: 2 unit Lisinopril (Zestril) 10 mg PO BID [facility] Last Admin: 09/06/17 09:24 Dose: 10 mg Metoprolol Tartrate (Lopressor) 25 mg PO BID [facility] Last Admin: 09/06/17 09:24 Dose: 25 mg Miscellaneous Medication (Pharmacy To Dose) 1 each IVPB ONE PRN PRN Reason: Pharmacy to dose Stop: 10/05/17 01:21 Multivitamins (Theragran) 1 tab PO DAILY [facility] Last Admin: 09/06/17 09:24 Dose: 1 tab Nitroglycerin (Nitrostat) 0.4 mg PO Q5MIN PRN PRN Reason: Chest Pain Ondansetron HCl (Zofran Odt) 4 mg PO Q6H PRN PRN Reason: Nausea/Vomiting Ondansetron HCl (Zofran) 4 mg IVP Q6H PRN PRN Reason: Nausea/Vomiting Senna (Senokot) 2 tab PO HSPRN PRN PRN Reason: Constipation Simvastatin (Zocor) 20 mg PO [facility] Last Admin: 09/05/17 20:30 Dose: 20 mg Thiamine HCl (Thiamine) 100 mg PO DAILY [facility] Last Admin: 09/06/17 09:24 Dose: 100 mg
[2017-09-06] MEDS: Meropenem 1 GM in Sodium Chloride 0.9% 100 ML IVPB SCH ×3 (02:22→17:35)
[2017-09-06] MEDS: Sodium Chloride 0.9% 1,000 ML IV SCH ×3 (02:25→17:36)
[2017-09-06] MEDS: Folic Acid 1 MG TAB PO SCH (09:24)
[2017-09-06] MEDS: Multivit, Therapeutic 1 TAB PO SCH (09:24)
[2017-09-06] MEDS: Metoprolol Tartrate 25 MG TAB PO SCH ×2 (09:24→20:34)
[2017-09-06] MEDS: Lisinopril 10 MG TAB PO SCH ×2 (09:24→20:33)
[2017-09-06] MEDS: NPH, Human Insulin Isophane 300 UNIT/3 ML VIAL SC SCH ×2 (09:25→20:34)
[2017-09-06] MEDS: Aspirin 325 MG TAB PO SCH (09:25)
[2017-09-06] MEDS: Insulin Regular 300 UNITS/3 ML VIAL SC PRN ×2 (11:28→20:34)
--- NOTE | 2017-09-06 14:12 | PDOC.PN ---
- Subjective Encounter Start Date: 09/06/17 Encounter Start Time: 09:00 patient is seen today, Afghan speaking, speaks some belarusian, he said he would need disability letter and advised to see his PCP for a detailed disability report. - Objective Resuscitation Status: Resuscitation Status FULL:Full Resuscitation MAR Reviewed: Yes Vital Signs & Weight: Vital Signs (12 hours) Temp Pulse Resp BP BP BP Pulse Ox 09/06/17 09:24 176/86 H 09/06/17 08:00 98.4 F 75 18 173/86 H 98 09/06/17 07:47 98.5 F 69 20 09/06/17 04:00 98.5 F 69 20 122/63 97 09/06/17 03:59 97 Weight Admit Weight 209 lb 7.024 oz Weight 126 lb 6.4 oz I&O: 09/05/17 09/06/17 09/07/17 06:59 06:59 06:59 Intake Total 500 2363 Output Total 550 1925 Balance -50 438 Result Diagrams: 09/05/17 04:22 09/05/17 04:22 Additional Labs: Accuchecks 09/06/17 09/06/17 09/05/17 11:29 05:01 19:55 POC Glucose 210 H 98 231 H 09/05/17 11:32 POC Glucose 135 H Radiology Reviewed by me: Yes Phys Exam - Physical Examination HEENT: PERRLA, moist MMs Neck: no nodes, no JVD Respiratory: no wheezing, no rales Cardiovascular: RRR, no significant murmur Gastrointestinal: soft, non-tender Musculoskeletal: no edema, pulses present Neurological: non-focal, normal sensation Psychiatric: normal affect, A&O x 3 Dx/Plan (1) Type 2 diabetes, uncontrolled, with leg or foot ulcer Code(s): [id number] - Status: Acute (2) Left foot infection Code(s): L08.9 - LOCAL INFECTION OF THE SKIN AND SUBCUTANEOUS TISSUE, UNSP Status: Acute Comment: Continue on IV merpenam, ID following, Angiogram Did not reveal any aciute blockages and Recommeded mendical maagement or if needed Amputation for Non healing infected foot ulcer. (3) PVD (peripheral vascular disease) Code(s): I73.9 - PERIPHERAL VASCULAR DISEASE, UNSPECIFIED Status: Acute Comment: Chronic, Continue Ob Aspirin and Statin. (4) Hepatitis C carrier Code(s): B18.2 - CHRONIC VIRAL HEPATITIS C Status: Acute (5) Hypertension Code(s): I10 - ESSENTIAL (PRIMARY) HYPERTENSION Status: Acute Qualifiers: Hypertension type: essential hypertension Qualified Code(s): I10 - Essential (primary) hypertension Comment: COntinue to Monitor. Will restrt home Meds. - Plan cont current plan of care, continue antibiotics, PT/OT, social service liaison * . - Discharge Day Encounter end time: 09:35 Review of Systems - Review of Systems Constitutional: negative: fever, chills, sweats, weakness, malaise, other Eyes: negative: Pain, Vision Change, Conjunctivae Inflammation, Eyelid Inflammation, Redness, Other ENT: negative: Ear Pain, Ear Discharge, Nose Pain, Nose Discharge, Nose Congestion, Mouth Pain, Mouth Swelling, Throat Pain, Throat Swelling, Other Respiratory: negative: Cough, Dry, Shortness of Breath, Hemoptysis, SOB with Excertion, Pleuritic Pain, Sputum, Wheezing Cardiovascular: negative: chest pain, palpitations, orthopnea, paroxysmal nocturnal dyspnea, edema, light headedness, other Gastrointestinal: negative: Nausea, Vomiting, Abdominal Pain, Diarrhea, Constipation, Melena, Hematochezia, Other Musculoskeletal: negative: Neck Pain, Shoulder Pain, Arm Pain, Back Pain, Hand Pain, Leg Pain, Foot Pain, Other Skin: negative: Rash, Lesions, Justin, Bruising, Other - Medications/Allergies Allergies/Adverse Reactions: Allergies Allergy/AdvReac Type Severity Reaction Status Date / Time No Known Allergies Allergy Verified 09/05/17 02:03 Medications: Current Medications Acetaminophen (Tylenol) 650 mg PO Q4H PRN PRN Reason: Headache/Fever or Pain Last Admin: 09/06/17 09:23 Dose: 650 mg Aspirin (Aspirin) 325 mg PO DAILY [facility] Last Admin: 09/06/17 09:25 Dose: 325 mg Calcium Carbonate (Tums) 1,000 mg PO Q4H PRN PRN Reason: Heartburn or Indigestion Dextrose/Water (Dextrose 50%) 25 gm SLOW IVP PRN PRN PRN Reason: Hypoglycemia Enoxaparin Sodium (Lovenox) 40 mg SC 2100 [facility] Last Admin: 09/05/17 20:30 Dose: 40 mg Folic Acid (Folvite) 1 mg PO DAILY [facility] Last Admin: 09/06/17 09:24 Dose: 1 mg Glucagon (Glucagon) 1 mg IM PRN PRN PRN Reason: Hypoglycemia Hydralazine HCl (Apresoline) 10 mg SLOW IVP Q4H PRN PRN Reason: SBP Greater Than 180 Last Admin: 09/05/17 02:24 Dose: 10 mg Dextrose/Water (D5w) 1,000 mls @ 0 mls/hr IV .Q0M PRN; As Directed PRN Reason: Hypoglycemia Meropenem 1 gm/ Sodium (Chloride) 100 mls @ 200 mls/hr IVPB 0200,1000,1800 [facility] Last Admin: 09/06/17 09:25 Dose: 100 mls Sodium Chloride (Normal Saline 0.9%) 1,000 mls @ 100 mls/hr IV .Q10H [facility] Stop: 09/08/17 01:31 Last Admin: 09/06/17 07:30 Dose: Not Given Vancomycin HCl 1 gm/ Device 200 mls @ 200 mls/hr IVPB 1200,2359 [facility] Last Admin: 09/06/17 11:27 Dose: 200 mls Insulin Human NPH (Humulin N) 10 unit SC BID [facility] Last Admin: 09/06/17 09:25 Dose: 10 unit Insulin Human Regular (Humulin R) 0 units SC .MILD SLIDING SCALE PRN PRN Reason: Mild Correctional Scale Last Admin: 09/06/17 11:28 Dose: 3 unit Insulin Human Regular (Humulin R) 0 units SC .BEDTIME SLIDING SC PRN PRN Reason: Bedtime Correctional Scale Last Admin: 09/05/17 20:31 Dose: 2 unit Lisinopril (Zestril) 10 mg PO BID [facility] Last Admin: 09/06/17 09:24 Dose: 10 mg Metoprolol Tartrate (Lopressor) 25 mg PO BID [facility] Last Admin: 09/06/17 09:24 Dose: 25 mg Miscellaneous Medication (Pharmacy To Dose) 1 each IVPB ONE PRN PRN Reason: Pharmacy to dose Stop: 10/05/17 01:21 Multivitamins (Theragran) 1 tab PO DAILY [facility] Last Admin: 09/06/17 09:24 Dose: 1 tab Nitroglycerin (Nitrostat) 0.4 mg PO Q5MIN PRN PRN Reason: Chest Pain Ondansetron HCl (Zofran Odt) 4 mg PO Q6H PRN PRN Reason: Nausea/Vomiting Ondansetron HCl (Zofran) 4 mg IVP Q6H PRN PRN Reason: Nausea/Vomiting Senna (Senokot) 2 tab PO HSPRN PRN PRN Reason: Constipation Simvastatin (Zocor) 20 mg PO [facility] Last Admin: 09/05/17 20:30 Dose: 20 mg Thiamine HCl (Thiamine) 100 mg PO DAILY [facility] Last Admin: 09/06/17 09:24 Dose: 100 mg
[2017-09-06] MEDS: hydrALAZINE 20 MG/ML VIAL SLOW IVP PRN (17:03)
[2017-09-06] MEDS: Enoxaparin Sodium 40 MG/0.4 ML SYRINGE SC SCH (20:33)
[2017-09-06] MEDS: Simvastatin 20 MG TAB PO SCH (20:33)
--- NOTE | 2017-09-06 22:16 | CON ---
DATE OF CONSULTATION: 09/06/2017 REASON FOR CONSULTATION: Left foot drainage and swelling with tenderness. HISTORY OF PRESENT ILLNESS: A 62-year-old with a history of type 2 diabetes, chronic hepatitis C wit h previous complications left foot with amputation of the first and second toes left side who is brou ght in because of tenderness and what he describes as a blister with drainage at the bottom aspect of the second toe left foot. The patient has a history of fairly recent CVA in the subcortical area of the left side caudate nucleus for which he is managing with aspirin. No fever or chills. No respir atory symptoms or abdominal pain, no diarrhea. PAST MEDICAL HISTORY: Diabetes type 2, hypertension, chronic hepatitis C which has not been treated, pneumothorax, CVA, neuropathy; amputation, left first and second toes. PAST SURGICAL HISTORY: As above. ALLERGIES: None. CURRENT MEDICATIONS: Tylenol, aspirin, Tums, dextrose, Lovenox, Folvite, Apresoline, Humulin insulin , Zestril, meropenem, and vancomycin. SOCIAL HISTORY: Never a smoker. History of alcohol dependency syndrome in the past. FAMILY HISTORY: Noncontributory. PHYSICAL EXAMINATION: VITAL SIGNS: Temperature max 98.5, blood pressure 170/86, pulse 75, respirations 18, O2 saturation 9 8%. GENERAL: There is no distress, oriented. SKIN: Skin lesions show a left foot with a slit-like opening at the skin of the base of the second M PJ at the amputation site. No redness, no swelling, no drainage noted. No lymphadenopathy. HEENT: Ocular movements conjugate. Oral cavity normal. Numerous missing teeth. NECK: Supple. LUNGS: With symmetric clear breath sounds. HEART: S1, S2, regular rate. ABDOMEN: Soft, not distended. Pulses are diminished in dorsalis pedis and I could not feel poplitea ls. The patient has had a vascular evaluation with Dr. Arvizu which did not show any lesion that was amenable to revascularization. EXTREMITIES: He moves extremities on command. NEUROLOGIC: Awake, alert, and oriented. LABORATORY DATA: The white cell count 10 and 9.9, hemoglobin 11, platelets 178. Sodium 134, creatin ine 0.69, AST 44, ALT 38, alkaline phosphatase 155, albumin 3.7. Urinalysis is not remarkable except for glycosuria. Microbiology with culture, I believe from the foot drainage. This is a swab cultur e probably reflects colonization rather than true invasive infection. There is a foot x-ray from 09/2017, medication changes, vascular calcification. No other changes. ASSESSMENT: 1. Type 2 diabetes with peripheral vascular disease with not amenable to revascularization. 2. Prior amputation first and second toes, now with evidence of drainage following blister, drainage of serosanguineous inflammatory process has resolved now. DISCUSSION: Differential diagnosis includes a deep inflammatory process with osteomyelitis versus ju st superficial associated with tissue injury from neuropathy and pressure induced changes with bliste ring. We will check an MRI scan with contrast; if it is normal, then discontinue without antimicrobi al therapy. Proper footwear would be important to prevent future recurrence of the same issue. If t here is evidence of osteomyelitis and he will need protracted treatment with IV antimicrobial therapy .
[2017-09-07] MEDS: Vancomycin HCl 1 GM in Premix Bag 1 BAG IVPB SCH ×3 (00:05→23:48)
[2017-09-07] MEDS: Meropenem 1 GM in Sodium Chloride 0.9% 100 ML IVPB SCH ×3 (01:55→17:15)
[2017-09-07] MEDS: Sodium Chloride 0.9% 1,000 ML IV SCH ×3 (05:42→23:48)
[2017-09-07] MEDS: Metoprolol Tartrate 25 MG TAB PO SCH ×2 (09:14→20:32)
[2017-09-07] MEDS: Folic Acid 1 MG TAB PO SCH (09:14)
[2017-09-07] MEDS: NPH, Human Insulin Isophane 300 UNIT/3 ML VIAL SC SCH ×2 (09:14→20:33)
[2017-09-07] MEDS: Aspirin 325 MG TAB PO SCH (09:14)
[2017-09-07] MEDS: Lisinopril 10 MG TAB PO SCH ×2 (09:15→20:33)
[2017-09-07] MEDS: Multivit, Therapeutic 1 TAB PO SCH (09:15)
[2017-09-07] MEDS: Insulin Regular 300 UNITS/3 ML VIAL SC PRN (12:55)
--- NOTE | 2017-09-07 14:00 | MRI ---
MRI LEFT FOOT NONCONTRAST: Date: 09/07/17 HISTORY: Toe amputation. Ulceration and swelling. FINDINGS: Marker was placed adjacent to the remaining portions of the second toe. Amputation of the first and s econd toe are apparent. Soft tissue edema of the superficial plantar tissues in the region of palpabl e concern are apparent. Underlying remaining bone marrow is within normal limits. No focal fluid juan carlos ections. IMPRESSION: Postoperative changes of the left foot with amputation of the first and second toes. Edema is apparen t within the plantar soft tissues. No evidence of bone marrow edema. POS: [facility]
--- NOTE | 2017-09-07 16:31 | PDOC.PN ---
- Subjective Encounter Start Date: 09/07/17 Encounter Start Time: 09:00 Patient Seen today, Difficult to Understand due to language barrier. He is Alert and oriented. pending MRI. - Objective Resuscitation Status: Resuscitation Status FULL:Full Resuscitation MAR Reviewed: Yes Vital Signs & Weight: Vital Signs (12 hours) Temp Pulse Resp BP BP BP Pulse Ox 09/07/17 11:32 98.1 F 68 16 172/91 H 98 09/07/17 09:15 177/86 H 09/07/17 08:00 98.3 F 74 16 177/86 H 97 09/07/17 07:11 98.6 F 75 16 Weight Admit Weight 209 lb 7.024 oz Weight 126 lb 6.4 oz I&O: 09/06/17 09/07/17 09/08/17 06:59 06:59 06:59 Intake Total 2363 3384 Output Total 1925 1605 Balance 438 1779 Result Diagrams: 09/05/17 04:22 09/05/17 04:22 Additional Labs: Accuchecks 09/07/17 09/07/17 09/06/17 11:26 05:40 20:10 POC Glucose 209 H 110 221 H 09/06/17 16:40 POC Glucose 111 H Radiology Reviewed by me: Yes Phys Exam - Physical Examination HEENT: PERRLA, moist MMs Neck: no nodes, no JVD Respiratory: no wheezing, no rales Cardiovascular: RRR, no significant murmur Gastrointestinal: soft, non-tender Musculoskeletal: no edema, pulses present Neurological: non-focal, normal sensation Lymphatic: no nodes Psychiatric: normal affect, A&O x 3 Skin: no rash, normal turgor Dx/Plan (1) Type 2 diabetes, uncontrolled, with leg or foot ulcer Code(s): [id number] - Status: Acute Comment: Will continue with SSI. (2) Left foot infection Code(s): L08.9 - LOCAL INFECTION OF THE SKIN AND SUBCUTANEOUS TISSUE, UNSP Status: Acute Comment: Continue on IV merpenam, ID following, Angiogram Did not reveal any aciute blockages and Recommeded mendical maagement or if needed Amputation for Non healing infected foot ulcer. (3) PVD (peripheral vascular disease) Code(s): I73.9 - PERIPHERAL VASCULAR DISEASE, UNSPECIFIED Status: Acute Comment: Chronic, Continue Ob Aspirin and Statin. (4) Hepatitis C carrier Code(s): B18.2 - CHRONIC VIRAL HEPATITIS C Status: Acute (5) Hypertension Code(s): I10 - ESSENTIAL (PRIMARY) HYPERTENSION Status: Acute Qualifiers: Hypertension type: essential hypertension Qualified Code(s): I10 - Essential (primary) hypertension Comment: COntinue to Monitor. Will restrt home Meds. - Plan cont current plan of care, continue antibiotics, PT/OT, social worker aide, respiratory therapy, incentive spirometry, DVT proph w/lovenox * . - Discharge Day Encounter end time: 09:35 Review of Systems - Review of Systems Eyes: negative: Pain, Vision Change, Conjunctivae Inflammation, Eyelid Inflammation, Redness, Other ENT: negative: Ear Pain, Ear Discharge, Nose Pain, Nose Discharge, Nose Congestion, Mouth Pain, Mouth Swelling, Throat Pain, Throat Swelling, Other Respiratory: negative: Cough, Dry, Shortness of Breath, Hemoptysis, SOB with Excertion, Pleuritic Pain, Sputum, Wheezing Cardiovascular: negative: chest pain, palpitations, orthopnea, paroxysmal nocturnal dyspnea, edema, light headedness, other Gastrointestinal: negative: Nausea, Vomiting, Abdominal Pain, Diarrhea, Constipation, Melena, Hematochezia, Other Genitourinary: negative: Dysuria, Frequency, Incontinence, Hematuria, Retention , Other Musculoskeletal: Leg Pain - Medications/Allergies Allergies/Adverse Reactions: Allergies Allergy/AdvReac Type Severity Reaction Status Date / Time No Known Allergies Allergy Verified 09/05/17 02:03 Medications: Current Medications Acetaminophen (Tylenol) 650 mg PO Q4H PRN PRN Reason: Headache/Fever or Pain Last Admin: 09/06/17 09:23 Dose: 650 mg Aspirin (Aspirin) 325 mg PO DAILY [facility] Last Admin: 09/07/17 09:14 Dose: 325 mg Calcium Carbonate (Tums) 1,000 mg PO Q4H PRN PRN Reason: Heartburn or Indigestion Dextrose/Water (Dextrose 50%) 25 gm SLOW IVP PRN PRN PRN Reason: Hypoglycemia Enoxaparin Sodium (Lovenox) 40 mg SC 2100 [facility] Last Admin: 09/06/17 20:33 Dose: 40 mg Folic Acid (Folvite) 1 mg PO DAILY [facility] Last Admin: 09/07/17 09:14 Dose: 1 mg Glucagon (Glucagon) 1 mg IM PRN PRN PRN Reason: Hypoglycemia Hydralazine HCl (Apresoline) 10 mg SLOW IVP Q4H PRN PRN Reason: SBP Greater Than 180 Last Admin: 09/06/17 17:03 Dose: 10 mg Dextrose/Water (D5w) 1,000 mls @ 0 mls/hr IV .Q0M PRN; As Directed PRN Reason: Hypoglycemia Meropenem 1 gm/ Sodium (Chloride) 100 mls @ 200 mls/hr IVPB 0200,1000,1800 [facility] Last Admin: 09/07/17 09:30 Dose: 100 mls Sodium Chloride (Normal Saline 0.9%) 1,000 mls @ 100 mls/hr IV .Q10H [facility] Stop: 09/08/17 01:31 Last Admin: 09/07/17 09:13 Dose: 1,000 mls Vancomycin HCl 1 gm/ Device 200 mls @ 200 mls/hr IVPB 1200,2359 [facility] Last Admin: 09/07/17 11:28 Dose: 200 mls Insulin Human NPH (Humulin N) 10 unit SC BID [facility] Last Admin: 09/07/17 09:14 Dose: 10 unit Insulin Human Regular (Humulin R) 0 units SC .MILD SLIDING SCALE PRN PRN Reason: Mild Correctional Scale Last Admin: 09/07/17 12:55 Dose: 3 unit Insulin Human Regular (Humulin R) 0 units SC .BEDTIME SLIDING SC PRN PRN Reason: Bedtime Correctional Scale Last Admin: 09/06/17 20:34 Dose: 2 unit Lisinopril (Zestril) 10 mg PO BID [facility] Last Admin: 09/07/17 09:15 Dose: 10 mg Metoprolol Tartrate (Lopressor) 25 mg PO BID [facility] Last Admin: 09/07/17 09:14 Dose: 25 mg Miscellaneous Medication (Pharmacy To Dose) 1 each IVPB ONE PRN PRN Reason: Pharmacy to dose Stop: 10/05/17 01:21 Multivitamins (Theragran) 1 tab PO DAILY [facility] Last Admin: 09/07/17 09:15 Dose: 1 tab Nitroglycerin (Nitrostat) 0.4 mg PO Q5MIN PRN PRN Reason: Chest Pain Ondansetron HCl (Zofran Odt) 4 mg PO Q6H PRN PRN Reason: Nausea/Vomiting Ondansetron HCl (Zofran) 4 mg IVP Q6H PRN PRN Reason: Nausea/Vomiting Senna (Senokot) 2 tab PO HSPRN PRN PRN Reason: Constipation Simvastatin (Zocor) 20 mg PO [facility] Last Admin: 09/06/17 20:33 Dose: 20 mg Thiamine HCl (Thiamine) 100 mg PO DAILY [facility] Last Admin: 09/07/17 09:14 Dose: 100 mg
[2017-09-07] MEDS: hydrALAZINE 20 MG/ML VIAL SLOW IVP PRN (17:49)
[2017-09-07] MEDS: Simvastatin 20 MG TAB PO SCH (20:32)
[2017-09-07] MEDS: Enoxaparin Sodium 40 MG/0.4 ML SYRINGE SC SCH (20:33)
[2017-09-08] MEDS: Meropenem 1 GM in Sodium Chloride 0.9% 100 ML IVPB SCH ×2 (02:07→10:38)
[2017-09-08] MEDS: Metoprolol Tartrate 25 MG TAB PO SCH (08:13)
[2017-09-08] MEDS: Lisinopril 10 MG TAB PO SCH (08:13)
[2017-09-08] MEDS: Multivit, Therapeutic 1 TAB PO SCH (08:13)
[2017-09-08] MEDS: NPH, Human Insulin Isophane 300 UNIT/3 ML VIAL SC SCH (08:13)
[2017-09-08] MEDS: Folic Acid 1 MG TAB PO SCH (08:13)
[2017-09-08] MEDS: Aspirin 325 MG TAB PO SCH (08:13)
[2017-09-08] MEDS: hydrALAZINE 20 MG/ML VIAL SLOW IVP PRN (11:30)
[2017-09-08] MEDS: Vancomycin HCl 1 GM in Premix Bag 1 BAG IVPB SCH (11:31)
[2017-09-08 11:54] VITALS: TEMP 97.7
[2017-09-08 13:32] VITALS: BP 159/90
--- NOTE | 2017-09-08 14:24 | DIS ---
ATTENDING PHYSICIAN: Dr. Sascha Hamlin DATE OF ADMISSION: 09/05/2017 DATE OF DISCHARGE: 09/08/2017 ADMITTING DIAGNOSIS: Left heel ulcer infection. DISCHARGE DIAGNOSES: 1. Left heel ulcer infection. 2. Infected diabetic foot ulcer with surrounding cellulitis. SECONDARY DIAGNOSES: 1. Type 2 diabetes mellitus. 2. Hypertension. 3. Chronic hepatitis C. 4. History of cerebrovascular accident. CONSULTANTS: Dr. Kramer from Infectious Disease. Other diagnostic investigations done during this admission are MRI of the left foot did not show any evidence of osteomyelitis. HISTORY OF PRESENT ILLNESS AND HOSPITAL COURSE: In brief, the patient is a 62-year-old male with [place] ontrolled type 2 diabetes mellitus, was admitted to this facility prior to this 4 months ago, was unr esponsive at that time and was found to have a left CVA with uncontrolled type 2 diabetes mellitus. He was started on aspirin and also insulin. The patient did not take any of those medications. The patient presented to the ER with evaluation of the drainage from his left foot wound over the last week, and he noted some pain and swelling in the left foot along with redness around it. He had a left first and second toe amputation in 2014 and noticed some drainage which was serosanguineous. Th patient was seen by Infectious Disease and initially thought that the patient would need to be eval uated for osteomyelitis, so MRI of the foot was done which did not show any evidence of osteomyelitis , but did show soft tissue infection. He was on Zosyn, vancomycin and levofloxacin. His white cells remained low, most likely from chronic hepatitis C infection, but did not spike any fever. His pain was well controlled. The patient was able to put his foot down and walk. There was not much of dra sheikh was coming out and the patient was advised to follow up with the [facility] and with the primary care physician in 1 week. The patient is discharged home in stable condition. PHYSICAL EXAMINATION: VITAL SIGNS: Blood pressures are 156/85, heart rate of 88, respiratory rate 18, saturation 98%. GENERAL: The patient is moderately built, well-nourished, does not appear in acute distress at this time. Alert, oriented x3. HEENT: Atraumatic, normocephalic. PERRLA. Extraocular movements are intact. Oral mucosa pink and moist. CARDIOVASCULAR: S1, S2 normal. No murmurs, no rubs or gallops. MUSCULOSKELETAL: No calf tenderness. No pedal edema. No joint tenderness, no joint swelling. Left heel wound looks stable and is well covered with dressings and no signs of any bleeding was noted. DISCHARGE MEDICATIONS: 1. Aspirin 81 mg daily. 2. Insulin 10 units subcu b.i.d. 3. Lisinopril 2.5 mg p.o. daily. 4. Metoprolol 20 mg p.o. b.i.d. 5. Simvastatin 20 mg p.o. daily. NEW MEDICATIONS: Doxycycline 100 mg p.o. b.i.d. Continue for 10 more days. 1. DISCHARGE INSTRUCTIONS: Continue activity as tolerated. Advised to follow up with primary care phys rod in 1-2 weeks. Advised to follow up with Dr. Kramer in 2 weeks to look for evidence of good woun d healing. Advised to return back to the ER if the patient has any persistent pain or any further bleeding or wo rsening of the infection. The patient is discharged home in stable condition. DIET: Continue with diabetic diet. ATTENDING PHYSICIAN: Dr. Sascha Hamlin. I spent 35 minutes spent on the discharge of this patient.
== END 2017-09-08 16:23 | disposition home or self-care (01) | DRG 300 ==
LOC: ERS 20:06 → T4-B 09-05 01:05
PROVIDERS: ADMIT Internal Medicine; ATTEND Internal Medicine
PROC: B41G1ZZ Fluoroscopy of Left Lower Extremity Arteries using Low Osmolar Contrast (ICD-10-PCS; principal; 2017-09-05)
DX: E11.51 Type 2 diabetes mellitus with diabetic peripheral angiopathy without gangrene (principal); L03.116 Cellulitis of left lower limb; E11.621 Type 2 diabetes mellitus with foot ulcer; L97.429 Non-pressure chronic ulcer of left heel and midfoot with unspecified severity; E11.65 Type 2 diabetes mellitus with hyperglycemia; B18.2 Chronic viral hepatitis C; I10 Essential (primary) hypertension; Z86.73 Personal history of transient ischemic attack (TIA), and cerebral infarction without residual deficits; Z91.14 Patient's other noncompliance with medication regimen; Z89.412 Acquired absence of left great toe; Z89.422 Acquired absence of other left toe(s)
CPT/HCPCS: 36247; 36415; 36416; 75710; 76942; 80048; 80053; 80202; 81003; 81015; 82010; 83605; 83735; 85025; 86140; 87040; 87070; 87077; 87086; 87186; 87205; 94760; 96365; 96367; 96372; 99152; C1760; C1769; C1887; J0360; J1644; J1650; J1815; J1956; J2001; J2185; J2250; J3010; J3370; J3475; J7050

== ENCOUNTER 2017-12-13 22:03 | Emergency (ER) | payer SELFPAY ==
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
== END 2017-12-14 01:00 | disposition home or self-care (01) ==
LOC: ERS 22:03
DX: S00.83XA Contusion of other part of head, initial encounter (principal); F10.10 Alcohol abuse, uncomplicated; E11.9 Type 2 diabetes mellitus without complications; Z89.412 Acquired absence of left great toe; Z89.422 Acquired absence of other left toe(s); V87.8XXA Person injured in other specified noncollision transport accidents involving motor vehicle (traffic), initial encounter
CPT/HCPCS: 70450; 70486; 72125

== ENCOUNTER 2018-01-04 10:19 | Inpatient (IN) | payer SELFPAY ==
[2018-01-04] MEDS ORDERED: MEROPENEM 1 GM/50 ML 1 GM in Premix Bag 1 BAG IVPB SCH (11:00)
[2018-01-04 11:24] LABS: INR-International Normal Ratio 1.5; Prothrombin Time 18.1 SEC (12.0-14.7)
[2018-01-04 11:25] LABS: PTT 40.3 SEC (22.9-36.1)
[2018-01-04 11:33] LABS: Band 14 % (5-11); Hemoglobin 10.7 g/dL (14.0-18.0); Lymphocytes 2 % (21-51); MDiff Complete? YES; Mean Corpuscular HGB CONC 35.4 g/dL (32.0-36.0); Mean Corpuscular Hemoglobin 33.1 pg (27.0-31.0); Mean Corpuscular Volume 93.5 fL (78.0-98.0); Mean Platelet Volume 7.3 fL (7.4-10.4); Metamyelocyte 1 % (0-0); Monocytes 6 % (0-10); Neutrophil 77 % (42-75); Platelet Count 283 thou/uL (130-400); RBC Distribution Width 11.4 % (11.5-14.5); Red Blood Cell (RBC) Count 3.21 mill/uL (4.70-6.10); White Blood Cell (WBC) Count 18.3 thou/uL (4.8-10.8)
[2018-01-04 11:42] LABS: ALT (SGPT) 37 U/L (8-55); AST (SGOT) 66 U/L (5-34); Albumin 2.8 g/dL (3.5-5.0); Alkaline Phosphatase 122 U/L (40-150); Anion Gap 16 mmol/L (10-20); BUN (Urea Nitrogen) 29 mg/dL (8.4-25.7); Bilirubin, Total 1.8 mg/dL (0.2-1.2); CK (CPK) 14 U/L (30-200); Calc. Creatinine Clearance 0 mL/min (70-130); Calcium 8.4 mg/dL (7.8-10.44); Carbon Dioxide 18 mmol/L (22-29); Chloride 96 mmol/L (98-107); Estimated GFR-MDRD 61; Globulin 5.1 g/dL (2.4-3.5); Glucose 241 mg/dL (70-105); Potassium 4.5 mmol/L (3.5-5.1); Protein, Total 7.9 g/dL (6.0-8.3); Sodium 125 mmol/L (136-145)
--- NOTE | 2018-01-04 12:24 | RAD ---
RADIOGRAPH LEFT ANKLE 3 VIEWS: Date: 01/04/18 Time: 1001 hours HISTORY: 62-year-old male with left ankle pain. FINDINGS: No fracture, dislocation, or subluxation. Diffuse soft tissue edema of the ankle. Extensive atheroscl erotic calcification. No DJD. IMPRESSION: 1. Soft tissue edema. 2. No fracture. 3. Atherosclerosis. POS: [facility]
--- NOTE | 2018-01-04 12:28 | RAD ---
LEFT FOOT 3 VIEWS: Date: 01/04/18 HISTORY: Swollen, discolored, oozing, amputation. COMPARISON: Radiograph from 09/04/17. FINDINGS: There is subcutaneous gas in the dorsal and plantar soft tissues surrounding the forefoot. There is a lso gas extending along the posterior soft tissues. There is osteopenia and erosion of the second and third metatarsal heads and necks. There is osteopen ia of the second and third metatarsal diaphyses. Large ulcer of the flap overlying the second amputation site. 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 POS: [facility]
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
--- NOTE | 2018-01-04 13:22 | RAD ---
RADIOGRAPH CHEST 1 VIEW: HISTORY: 62-year-old male for preoperative clearance. FINDINGS: There are no air space densities, pulmonary edema, pneumothorax, or cardiomegaly. The lateral costop hrenic angles are sharp. IMPRESSION: No acute cardiopulmonary findings. franko [] POS: [facility]
[2018-01-04] MEDS ORDERED: PROPOFOL 200 MG/20 ML VIAL ONE (14:59)
[2018-01-04] MEDS ORDERED: Fentanyl 100 MCG/2 ML VIAL ONE ×2 (15:01→15:19)
[2018-01-04] MEDS ORDERED: Midazolam HCl 2 mg/2 ml Vial ONE (15:19)
[2018-01-04] MEDS ORDERED: Propofol 500 MG/50 ML VIAL ONE (15:19)
[2018-01-04] MEDS ORDERED: Ketamine 50 MG/ML VIAL ONE (15:30)
[2018-01-04] MEDS ORDERED: Dextrose 50% Abboject 50 ML SYRINGE SLOW IVP PRN (16:06)
[2018-01-04] MEDS ORDERED: HYDROcodone/Acetaminophen 10/325 mg Tablet PO PRN (16:06)
[2018-01-04] MEDS ORDERED: Dextrose 5% in Water 1,000 ML IV PRN (16:06)
[2018-01-04] MEDS ORDERED: Ondansetron HCl/PF 4 MG/2 ML Vial IVP PRN (16:06)
[2018-01-04] MEDS ORDERED: Morphine 4 MG/ML Carpuject IVP PRN (16:06)
[2018-01-04] MEDS ORDERED: traMADol HCl 50 MG TAB PO PRN ×2 (16:12)
[2018-01-04] MEDS ORDERED: Acetaminophen 500 MG TAB PO PRN (16:12)
[2018-01-04] MEDS: Sodium Chloride 0.9% 1,000 ML IV SCH (17:38)
[2018-01-04] MEDS: Piperacillin/Tazobactam 3.375 GM in Sodium Chloride 0.9% 100 ML IVPB SCH (18:04)
[2018-01-04] MEDS: HumaLOG 300 UNITS/3 ML VIAL SC PRN ×2 (18:04→21:53)
[2018-01-04] MEDS: Atorvastatin Calcium 10 MG TAB PO SCH (21:51)
[2018-01-04] MEDS: Metoprolol Tartrate 25 MG TAB PO SCH (21:51)
[2018-01-04] MEDS: Famotidine 20 MG TAB PO SCH (21:52)
[2018-01-04] MEDS: NPH, Human Insulin Isophane 300 UNIT/3 ML VIAL SC SCH (21:52)
[2018-01-04] MEDS: Enoxaparin Sodium 40 MG/0.4 ML SYRINGE SC SCH (21:52)
--- NOTE | 2018-01-04 22:55 | OP ---
PREOPERATIVE DIAGNOSES: Gas gangrene, left foot. Gangrene, skin and subcutaneous tissue, left lateral ankle, foot. Neuropathic ulcer, plantar left foot. Noncompliant diabetic. POSTOPERATIVE DIAGNOSES: Gas gangrene, left foot. Gangrene, skin and subcutaneous tissue, left lateral ankle, foot. Neuropathic ulcer, plantar left foot. Noncompliant diabetic. PROCEDURE: Guillotine amputation of left lower leg just above the ankle. SURGEON: Dr. Rolando Hidalgo. ANESTHESIA: Regional. ESTIMATED BLOOD LOSS: 50 mL BLOOD TRANSFUSED: None. PROCEDURE IN DETAIL: Patient was taken to the operating room under regional anesthesia and intravenous sedation, left lower extremity was prepared with ChloraPrep, draped in routine fashion. Circumferential incision was made above the ankle, carried down the skin and subcutaneous tissue. Transected _fibula with bone cutters & tibia with the Gigli followed by ligation of vascular pedicles wit 2-0 silk ties. Sterile dressing applied. Patient tolerated the procedure well. Plan is return to the operating room in three days for below- the-knee amputation. [facility]
[2018-01-05] MEDS: Piperacillin/Tazobactam 3.375 GM in Sodium Chloride 0.9% 100 ML IVPB SCH ×4 (00:55→18:16)
[2018-01-05] MEDS: Sodium Chloride 0.9% 1,000 ML IV SCH ×2 (02:54→14:28)
[2018-01-05 06:01] LABS: ALT (SGPT) 27 U/L (8-55); AST (SGOT) 47 U/L (5-34); Albumin 2.1 g/dL (3.5-5.0); Alkaline Phosphatase 97 U/L (40-150); Anion Gap 8 mmol/L (10-20); BUN (Urea Nitrogen) 23 mg/dL (8.4-25.7); Bilirubin, Total 0.9 mg/dL (0.2-1.2); Calc. Creatinine Clearance 0 mL/min (70-130); Calcium 7.7 mg/dL (7.8-10.44); Carbon Dioxide 20 mmol/L (22-29); Chloride 110 mmol/L (98-107); Estimated GFR-MDRD Greater than 90; Globulin 3.3 g/dL (2.4-3.5); Glucose 102 mg/dL (70-105); Potassium 3.4 mmol/L (3.5-5.1); Protein, Total 5.4 g/dL (6.0-8.3); Sodium 135 mmol/L (136-145)
[2018-01-05 08:43] VITALS: BMI 21.6
[2018-01-05] MEDS: Famotidine 20 MG TAB PO SCH ×2 (10:01→21:48)
[2018-01-05] MEDS: Aspirin 325 mg Enteric Coated Tablet PO SCH (10:01)
[2018-01-05] MEDS: HYDROcodone/Acetaminophen 10/325 mg Tablet PO PRN (10:02)
[2018-01-05] MEDS: Lisinopril 2.5 MG TAB PO SCH (10:02)
[2018-01-05] MEDS: Metoprolol Tartrate 25 MG TAB PO SCH ×2 (10:02→21:48)
[2018-01-05] MEDS: NPH, Human Insulin Isophane 300 UNIT/3 ML VIAL SC SCH ×2 (10:43→21:49)
[2018-01-05] MEDS: Polyethylene Glycol 3350 17 GM Packet PO SCH (10:45)
--- NOTE | 2018-01-05 18:35 | PRG ---
DATE OF SERVICE: 01/05/2018 Mr. Florence is doing well today. OBJECTIVE: VITAL SIGNS: 97.6, 55, 104/67. Blood cultures are negative today. LABORATORY DATA: White count 18, hemoglobin 10, sodium 135, potassium 3.4, BUN 23, creatinine 0.66. ASSESSMENT AND PLAN: 1. Necrotizing gas gangrene, left foot, status post guillotine amputation, 01/04/2018. 2. Noncompliant diabetes mellitus. Hospitalist has been consulted, but they have not seen him. We will reconsult medical service for management of his diabetes. 3. Charitable rehab consult. PLAN: Conversion of guillotine amputation to below the knee amputation midweek.
[2018-01-05] MEDS ORDERED: HumaLOG 300 UNITS/3 ML VIAL SC PRN (21:02)
--- NOTE | 2018-01-05 21:03 | PDOC.PN ---
- Subjective Encounter Start Date: 01/05/18 Encounter Start Time: 10:30 Patient seen and examined for med mngt. No CP/SOB. Pain controlled. - Objective MAR Reviewed: Yes Vital Signs & Weight: Vital Signs (12 hours) Temp Pulse Pulse Resp BP BP Pulse Ox 01/05/18 16:30 55 L 16 104/67 95 01/05/18 11:00 97.6 F 61 12 150/84 H 98 01/05/18 10:02 67 158/79 H 01/05/18 09:02 65 122/75 Pulse Ox 01/05/18 16:30 01/05/18 11:00 01/05/18 10:02 01/05/18 09:02 98 Weight Weight 130 lb 1.164 oz I&O: 01/04/18 01/05/18 01/06/18 06:59 06:59 06:59 Intake Total 2120 Output Total 1050 Balance 1070 Result Diagrams: 01/04/18 11:10 01/05/18 04:58 Additional Labs: Accuchecks 01/05/18 01/05/18 01/05/18 16:25 11:02 05:59 POC Glucose 79 116 H 110 Phys Exam - Physical Examination Constitutional: NAD Respiratory: no wheezing, no rhonchi Cardiovascular: RRR, no rub Gastrointestinal: soft, non-tender, positive bowel sounds Neurological: moves all 4 limbs Dx/Plan - Plan DVT proph w/SCDs IMPRESSION: 1. DM2 - uncontrolled Cont NPH 10 units BID Cont sliding scale ACHS and 0200 2. Hypokalemia Will replace AM labs Check Mg in AM 3. HTN Cont Lisinopril Cont Metoprolol 4. HLD Cont Statins Thank you for this consultation. Will follow. Review of Systems - Review of Systems Respiratory: negative: Cough, Dry, Shortness of Breath, Hemoptysis, SOB with Excertion, Pleuritic Pain, Sputum, Wheezing Cardiovascular: negative: chest pain, palpitations, orthopnea, paroxysmal nocturnal dyspnea, edema, light headedness, other - Medications/Allergies Allergies/Adverse Reactions: Allergies Allergy/AdvReac Type Severity Reaction Status Date / Time No Known Allergies Allergy Verified 09/05/17 02:03 Medications: Current Medications Acetaminophen (Tylenol) 1,000 mg PO Q6H PRN PRN Reason: Moderate to Severe Pain (6-10) Hydrocodone Bitart/Acetaminophen ([place] 10/325) 1 tab PO Q6H PRN PRN Reason: Mild-Moderate Pain (1-5) Hydrocodone Bitart/Acetaminophen ([place] 10/325) 2 tab PO Q6H PRN PRN Reason: Severe Pain (7-10) Last Admin: 01/05/18 10:02 Dose: 2 tab Aspirin (Ecotrin) 325 mg PO DAILY [facility] Last Admin: 01/05/18 10:01 Dose: 325 mg Atorvastatin Calcium (Lipitor) 10 mg PO HS [facility] Last Admin: 01/04/18 21:51 Dose: 10 mg Dextrose/Water (Dextrose 50%) 25 gm SLOW IVP PRN PRN PRN Reason: Hypoglycemia Enoxaparin Sodium (Lovenox) 40 mg SC 2100 [facility] Last Admin: 01/04/18 21:52 Dose: 40 mg Famotidine (Pepcid) 20 mg PO BID [facility] Last Admin: 01/05/18 10:01 Dose: 20 mg Glucagon (Glucagon) 1 mg IM PRN PRN PRN Reason: Hypoglycemia Hydralazine HCl (Apresoline) 10 mg SLOW IVP Q4H PRN PRN Reason: SBP > 170 or DBP > 100 Dextrose/Water (D5w) 1,000 mls @ 0 mls/hr IV .Q0M PRN; As Directed PRN Reason: Hypoglycemia Sodium Chloride (Normal Saline 0.9%) 1,000 mls @ 100 mls/hr IV .Q10H [facility] Last Admin: 01/05/18 14:28 Dose: Not Given Piperacillin Sod/Tazobactam (Sod 3.375 gm/ Sodium Chloride) 100 mls @ 200 mls/ hr IVPB Q6HR [facility] Last Admin: 01/05/18 18:16 Dose: 100 mls Insulin Human Lispro (Humalog) 0 units SC .MODERATE SLIDING SC PRN PRN Reason: Moderate Correctional Scale Last Admin: 01/04/18 21:53 Dose: 4 unit Insulin Human NPH (Humulin N) 10 unit SC BID [facility] Last Admin: 01/05/18 10:43 Dose: 10 unit Lisinopril (Zestril) 2.5 mg PO DAILY [facility] Last Admin: 01/05/18 10:02 Dose: 2.5 mg Metoprolol Tartrate (Lopressor) 25 mg PO BID [facility] Last Admin: 01/05/18 10:02 Dose: 25 mg Morphine Sulfate (Morphine) 2 mg IVP Q2H PRN PRN Reason: Mild Pain (1-3) Morphine Sulfate (Morphine) 4 mg IVP Q2H PRN PRN Reason: Moderate Pain (4-6) Ondansetron HCl (Zofran) 4 mg IVP Q6H PRN PRN Reason: Nausea Polyethylene Glycol (Miralax) 17 gm PO DAILY [facility] Last Admin: 01/05/18 10:45 Dose: 17 gm Sodium Chloride (Flush - Normal Saline) 10 ml IVF PRN PRN PRN Reason: Saline Flush Tramadol HCl (Ultram) 50 mg PO Q6H PRN PRN Reason: Mild Pain (1-3) Last Admin: 01/05/18 05:59 Dose: 50 mg Tramadol HCl (Ultram) 100 mg PO Q6H PRN PRN Reason: Moderate Pain (4-6)
[2018-01-05] MEDS: Atorvastatin Calcium 10 MG TAB PO SCH (21:47)
[2018-01-05] MEDS: Enoxaparin Sodium 40 MG/0.4 ML SYRINGE SC SCH (21:48)
[2018-01-06] MEDS: Piperacillin/Tazobactam 3.375 GM in Sodium Chloride 0.9% 100 ML IVPB SCH ×4 (00:26→17:22)
[2018-01-06] MEDS: Sodium Chloride 0.9% 1,000 ML IV SCH (00:26)
[2018-01-06 07:24] LABS: Hemoglobin A1c 7.7 % (4.0-6.0)
[2018-01-06 07:32] LABS: Anion Gap 12 mmol/L (10-20); BUN (Urea Nitrogen) 21 mg/dL (8.4-25.7); Calc. Creatinine Clearance 87 mL/min (70-130); Calcium 7.4 mg/dL (7.8-10.44); Carbon Dioxide 18 mmol/L (22-29); Chloride 110 mmol/L (98-107); Estimated GFR-MDRD Greater than 90; Glucose 70 mg/dL (70-105); Potassium 3.2 mmol/L (3.5-5.1); Sodium 137 mmol/L (136-145)
[2018-01-06] MEDS: Potassium Chloride 10 MEQ TAB PO SCH (08:45)
[2018-01-06] MEDS: Metoprolol Tartrate 25 MG TAB PO SCH ×2 (08:45→20:32)
[2018-01-06] MEDS: Aspirin 325 mg Enteric Coated Tablet PO SCH (08:45)
[2018-01-06] MEDS: Lisinopril 2.5 MG TAB PO SCH (08:45)
[2018-01-06] MEDS: Famotidine 20 MG TAB PO SCH ×2 (08:47→20:32)
[2018-01-06] MEDS: NPH, Human Insulin Isophane 300 UNIT/3 ML VIAL SC SCH ×2 (08:47→23:37)
[2018-01-06] MEDS: Polyethylene Glycol 3350 17 GM Packet PO SCH (08:47)
[2018-01-06] MEDS ORDERED: Potassium Chloride 20 MEQ TAB PO SCH ×2 (13:15→14:15)
[2018-01-06] MEDS ORDERED: Magnesium Sulfate 2 GM in Sodium Chloride 0.9% 100 ML IVPB SCH (13:45)
--- NOTE | 2018-01-06 13:47 | PRG ---
DATE OF SERVICE: 01/06/2018 SUBJECTIVE: The patient is seen and examined at the bedside. He is not having much complaints to of tate. The night was uneventful. OBJECTIVE: VITAL SIGNS: Blood pressure is 159/94, pulse is 57, temperature is 97.6, respiratory rate is 16, O2 saturation is 98% on room air. HEENT: Head is atraumatic, normocephalic. Eyes: PERRLA. Sclerae is nonicteric. Oral mucosa moist. NECK: Supple, no lymphadenopathy. LUNGS: Clear. HEART: S1, S2 normal, no S3, no S4. ABDOMEN: Soft, nontender, bowel sounds are present. EXTREMITIES: Status post amputation of the left lower leg just above the ankle. NEUROLOGIC: He is alert and oriented x4. There is not any motor deficits present. Cranial nerves a re intact. LABORATORY DATA: Showed sodium of 137, potassium 3.2, chloride 110, CO2 18, creatinine 0.75, hemoglo bin A1c 7.7, calcium 7.4, magnesium 1.4. Glycemia is ranging from 79-127. IMPRESSION: 1. 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 2. Uncontrolled diabetes mellitus. At this point, much better on both long-acting and short-acting sliding scale insulins. 3. Hypokalemia and hypomagnesemia, we will replace both. 4. Hypertension, still an issue. We will make some adjustment on his medicine. 5. HDL on statin. 6. He will continue on his DVT prophylaxis with enoxaparin 40 mg subcutaneously once every 24 hours. 7. He will continue on his pain management as needed.
--- NOTE | 2018-01-06 15:17 | PRG ---
DATE OF SERVICE: 01/06/2018 SUBJECTIVE: Mr. Adrianna Florence is doing well today. OBJECTIVE: VITAL SIGNS: Stable, afebrile, 97.6, 57, and 159/74. LABORATORY DATA: His potassium is 3.2. Renal function is normal. Glucose is 118, 127. Hemoglobin A1c 7.7. Plan is for formal BKA tomorrow. He understands risks and benefits and questions answered. Replace potassium.
[2018-01-06] MEDS: hydrALAZINE 20 MG/ML VIAL SLOW IVP PRN (20:32)
[2018-01-06] MEDS: Atorvastatin Calcium 10 MG TAB PO SCH (20:33)
[2018-01-06] MEDS: Enoxaparin Sodium 40 MG/0.4 ML SYRINGE SC SCH (23:36)
[2018-01-07] MEDS: Piperacillin/Tazobactam 3.375 GM in Sodium Chloride 0.9% 100 ML IVPB SCH ×5 (00:05→23:00)
[2018-01-07] MEDS: Metoprolol Tartrate 25 MG TAB PO SCH ×2 (05:25→20:46)
[2018-01-07 06:31] LABS: Anion Gap 12 mmol/L (10-20); BUN (Urea Nitrogen) 14 mg/dL (8.4-25.7); Calc. Creatinine Clearance 95 mL/min (70-130); Calcium 7.7 mg/dL (7.8-10.44); Carbon Dioxide 18 mmol/L (22-29); Chloride 112 mmol/L (98-107); Estimated GFR-MDRD Greater than 90; Glucose 118 mg/dL (70-105); Potassium 4.6 mmol/L (3.5-5.1); Sodium 137 mmol/L (136-145)
[2018-01-07 06:47] LABS: Hemoglobin 10.1 g/dL (14.0-18.0); Mean Corpuscular HGB CONC 33.8 g/dL (32.0-36.0); Mean Corpuscular Hemoglobin 32.4 pg (27.0-31.0); Mean Corpuscular Volume 95.7 fL (78.0-98.0); Mean Platelet Volume 6.9 fL (7.4-10.4); Platelet Count 294 thou/uL (130-400); RBC Distribution Width 11.5 % (11.5-14.5); Red Blood Cell (RBC) Count 3.11 mill/uL (4.70-6.10); White Blood Cell (WBC) Count 6.8 thou/uL (4.8-10.8)
[2018-01-07 07:24] LABS: Band 8 % (5-11); Lymphocytes 18 % (21-51); MDiff Complete? YES; Monocytes 4 % (0-10); Neutrophil 68 % (42-75); PLT Morphology Comment Appears Adequate; Polychromasia SLIGHT = 2-3 cells (100X) (0-2/hpf); Reactive Lymphocytes 2 % (0-10)
[2018-01-07] MEDS ORDERED: Sodium Chloride 0.9% 1,000 ML IV SCH (08:00)
[2018-01-07] MEDS: Polyethylene Glycol 3350 17 GM Packet PO SCH (11:50)
[2018-01-07] MEDS: NPH, Human Insulin Isophane 300 UNIT/3 ML VIAL SC SCH ×2 (11:50→21:32)
[2018-01-07] MEDS: Famotidine 20 MG TAB PO SCH ×2 (11:51→20:46)
[2018-01-07] MEDS: Lisinopril 5 MG TAB PO SCH (11:51)
[2018-01-07] MEDS: Aspirin 325 mg Enteric Coated Tablet PO SCH (11:51)
[2018-01-07] MEDS: Potassium Chloride 10 MEQ TAB PO SCH (11:51)
[2018-01-07] MEDS ORDERED: Bupivacaine HCl 0.5%/Epinephrine 1:200,000/PF 30 ml Vial ONE (12:45)
[2018-01-07] MEDS ORDERED: PROPOFOL 200 MG/20 ML VIAL ONE (13:18)
[2018-01-07] MEDS ORDERED: PHENYLEPHRINE-NS 100 MCG/ML 10 ML SYRINGE ONE (13:18)
[2018-01-07] MEDS ORDERED: Fentanyl 100 MCG/2 ML VIAL ONE ×2 (15:11→15:15)
[2018-01-07] MEDS ORDERED: Propofol 500 MG/50 ML VIAL ONE (15:11)
[2018-01-07] MEDS ORDERED: Lidocaine 2% Jelly 5 ML TUBE ONE (15:11)
[2018-01-07] MEDS ORDERED: Midazolam HCl 2 mg/2 ml Vial ONE (15:15)
[2018-01-07] MEDS ORDERED: Lidocaine 1% (PF) 30 ML VIAL ONE (15:16)
[2018-01-07] MEDS ORDERED: Promethazine HCl 25 MG/ML VIAL IM PRN (16:44)
[2018-01-07] MEDS ORDERED: Promethazine HCl 25 MG/ML VIAL SLOW IVP PRN (16:44)
[2018-01-07] MEDS ORDERED: Ondansetron HCl/PF 4 MG/2 ML Vial IVP PRN (16:44)
[2018-01-07] MEDS: Atorvastatin Calcium 10 MG TAB PO SCH (20:46)
[2018-01-07] MEDS: Enoxaparin Sodium 40 MG/0.4 ML SYRINGE SC SCH (20:46)
--- NOTE | 2018-01-07 23:53 | PDOC.PN ---
- Subjective Encounter Start Date: 01/07/18 Encounter Start Time: 15:00 Subjective: nsg notes rev, aziza ovn, touched based with bedside nsg -: no outstanding issues. pt is currently in OR - Objective Vital Signs & Weight: Weight Weight 130 lb 1.164 oz I&O: 01/06/18 01/07/18 01/08/18 06:59 06:59 06:59 Intake Total 1680 740 Output Total 350 425 Balance 1330 315 Result Diagrams: 01/07/18 06:04 01/07/18 06:04 Additional Labs: Accuchecks 01/07/18 01/07/18 01/07/18 20:48 10:43 05:46 POC Glucose 164 H 108 109 Dx/Plan - Plan * .
--- NOTE | 2018-01-08 00:19 | OP ---
DATE OF PROCEDURE: 01/07/2018 PREOPERATIVE DIAGNOSES: Gas gangrene, left leg. Status post guillotine amputation, left leg. PROCEDURE: Left [id number] amputation formal closure. POSTOPERATIVE DIAGNOSES: Gas gangrene, left leg. Status post guillotine amputation, left leg. ANESTHESIA: Regional TIVA anesthesia. ESTIMATED BLOOD LOSS: 250 mL BLOOD TRANSFUSED. None. PROCEDURE IN DETAIL: Patient was taken to the operating room where under regional TIVA anesthesia, h is left lower extremity was prepared with Betadine, draped in routine fashion. Incision was made for left [id number] amputation with long posterior flap carried down through the skin and subcutaneo us tissue layers with the cautery and vascular bundles were transected between clamps and ligat ed with 2-0 silk ties. Tibia cleared proximally with periosteal elevator and tibia transected with G igli saw, beveling the anterior edge cephalad, smoothing it with a rasp. Fibula cut about an inch an d a half above the cut edge of the tibia. Soft tissue divided with the cautery. Hemostasis gained w ith cautery and 2-0 silk ties. Wound irrigated. Fascia approximated with 2-0 Vicryl [id number] sutures and skin was approximated with hannah. Sterile dressing applied.
[2018-01-08] MEDS: Piperacillin/Tazobactam 3.375 GM in Sodium Chloride 0.9% 100 ML IVPB SCH ×4 (05:02→23:30)
[2018-01-08] MEDS: Potassium Chloride 10 MEQ TAB PO SCH (08:50)
[2018-01-08] MEDS: Metoprolol Tartrate 25 MG TAB PO SCH ×2 (08:51→21:29)
[2018-01-08] MEDS: Lisinopril 5 MG TAB PO SCH (08:51)
[2018-01-08] MEDS: Polyethylene Glycol 3350 17 GM Packet PO SCH (08:51)
[2018-01-08] MEDS: Famotidine 20 MG TAB PO SCH ×2 (08:51→21:29)
[2018-01-08] MEDS: Aspirin 325 mg Enteric Coated Tablet PO SCH (08:51)
[2018-01-08] MEDS: HYDROcodone/Acetaminophen 10/325 mg Tablet PO PRN (10:12)
[2018-01-08] MEDS: NPH, Human Insulin Isophane 300 UNIT/3 ML VIAL SC SCH ×2 (10:48→21:28)
[2018-01-08] MEDS: HumaLOG 300 UNITS/3 ML VIAL SC PRN (12:45)
--- NOTE | 2018-01-08 18:06 | PRG ---
DATE OF SERVICE: 01/08/2018 Mr. Florence is doing well. He denies pain. PHYSICAL EXAMINATION: VITAL SIGNS: Stable. EXTREMITIES: His left lower extremity BKA incision dressings are clean, dry, and intact. ASSESSMENT: Postop left below the knee amputation. PLAN: Wound care, pain control. Dr. Hidalgo to return tomorrow.
[2018-01-08] MEDS: Atorvastatin Calcium 10 MG TAB PO SCH (21:28)
[2018-01-08] MEDS: Enoxaparin Sodium 40 MG/0.4 ML SYRINGE SC SCH (21:29)
--- NOTE | 2018-01-08 22:56 | PDOC.PN ---
- Subjective Encounter Start Date: 01/08/18 Encounter Start Time: 11:00 Subjective: nsg notes rev, aziza ovn, no new c/o, overall feels ok, denies any overt pain - Objective Vital Signs & Weight: Vital Signs (12 hours) Temp Pulse Resp BP Pulse Ox 01/08/18 20:35 96 F L 63 17 165/87 H 98 01/08/18 16:44 96.4 F L 61 12 132/82 97 01/08/18 11:00 97.1 F L 69 18 163/84 H 95 Weight Weight 130 lb 1.164 oz I&O: 01/07/18 01/08/18 01/09/18 06:59 06:59 06:59 Intake Total 759 072 2722 Output Total 425 550 600 Balance 315 -60 500 Result Diagrams: 01/07/18 06:04 01/07/18 06:04 Additional Labs: Accuchecks 01/08/18 01/08/18 01/08/18 21:26 16:40 11:33 POC Glucose 91 75 236 H 01/08/18 06:12 POC Glucose 142 H Phys Exam - Physical Examination Constitutional: NAD seated in hosp chair HEENT: moist MMs Respiratory: no wheezing, no rales, no rhonchi, clear to auscultation bilateral Cardiovascular: RRR, no significant murmur, no rub Gastrointestinal: soft, non-tender, positive bowel sounds Musculoskeletal: no edema, pulses present Neurological: moves all 4 limbs dressing not removed from surg site Dx/Plan - Plan POD 1 L BKA pain controlled 1. DM2 Cont NPH 10 units BID Cont sliding scale ACHS and 0200 2. Hypokalemia, resolved 3. HTN, stable Cont Lisinopril Cont Metoprolol 4. HLD, stable Cont Statins Thank you for this consultation. Will follow. Review of Systems - Medications/Allergies Allergies/Adverse Reactions: Allergies Allergy/AdvReac Type Severity Reaction Status Date / Time No Known Allergies Allergy Verified 09/05/17 02:03 Medications: Current Medications Acetaminophen (Tylenol) 1,000 mg PO Q6H PRN PRN Reason: Moderate to Severe Pain (6-10) Hydrocodone Bitart/Acetaminophen ([place] 10/325) 1 tab PO Q6H PRN PRN Reason: Mild-Moderate Pain (1-5) Last Admin: 01/06/18 00:32 Dose: 1 tab Hydrocodone Bitart/Acetaminophen ([place] 10/325) 2 tab PO Q6H PRN PRN Reason: Severe Pain (7-10) Last Admin: 01/08/18 10:12 Dose: 2 tab Aspirin (Ecotrin) 325 mg PO DAILY [facility] Last Admin: 01/08/18 08:51 Dose: 325 mg Atorvastatin Calcium (Lipitor) 10 mg PO HS [facility] Last Admin: 01/08/18 21:28 Dose: 10 mg Dextrose/Water (Dextrose 50%) 25 gm SLOW IVP PRN PRN PRN Reason: Hypoglycemia Enoxaparin Sodium (Lovenox) 40 mg SC 2100 [facility] Last Admin: 01/08/18 21:29 Dose: 40 mg Famotidine (Pepcid) 20 mg PO BID [facility] Last Admin: 01/08/18 21:29 Dose: 20 mg Glucagon (Glucagon) 1 mg IM PRN PRN PRN Reason: Hypoglycemia Hydralazine HCl (Apresoline) 10 mg SLOW IVP Q4H PRN PRN Reason: SBP > 170 or DBP > 100 Last Admin: 01/06/18 20:32 Dose: 10 mg Dextrose/Water (D5w) 1,000 mls @ 0 mls/hr IV .Q0M PRN PRN Reason: Hypoglycemia Piperacillin Sod/Tazobactam (Sod 3.375 gm/ Sodium Chloride) 100 mls @ 200 mls/ hr IVPB Q6HR [facility] Last Admin: 01/08/18 18:07 Dose: 100 mls Insulin Human Lispro (Humalog) 0 units SC .MODERATE SLIDING SC PRN PRN Reason: Moderate Correctional Scale Last Admin: 01/08/18 12:45 Dose: 4 unit Insulin Human Lispro (Humalog) 0 units SC .BEDTIME SLIDING SC PRN PRN Reason: Bedtime Correctional Scale Insulin Human NPH (Humulin N) 10 unit SC BID [facility] Last Admin: 01/08/18 21:28 Dose: Not Given Lisinopril (Zestril) 5 mg PO DAILY [facility] Last Admin: 01/08/18 08:51 Dose: 5 mg Metoprolol Tartrate (Lopressor) 25 mg PO BID [facility] Last Admin: 01/08/18 21:29 Dose: 25 mg Morphine Sulfate (Morphine) 2 mg IVP Q2H PRN PRN Reason: Mild Pain (1-3) Last Admin: 01/07/18 11:47 Dose: 2 mg Morphine Sulfate (Morphine) 4 mg IVP Q2H PRN PRN Reason: Moderate Pain (4-6) Ondansetron HCl (Zofran) 4 mg IVP Q6H PRN PRN Reason: Nausea Polyethylene Glycol (Miralax) 17 gm PO DAILY [facility] Last Admin: 01/08/18 08:51 Dose: 17 gm Potassium Chloride (Klor-Con 10) 10 meq PO QAM-WM [facility] Last Admin: 01/08/18 08:50 Dose: 10 meq Sodium Chloride (Flush - Normal Saline) 10 ml IVF PRN PRN PRN Reason: Saline Flush Last Admin: 01/08/18 08:51 Dose: 10 ml Tramadol HCl (Ultram) 50 mg PO Q6H PRN PRN Reason: Mild Pain (1-3) Last Admin: 01/05/18 05:59 Dose: 50 mg Tramadol HCl (Ultram) 100 mg PO Q6H PRN PRN Reason: Moderate Pain (4-6)
[2018-01-09] MEDS: Piperacillin/Tazobactam 3.375 GM in Sodium Chloride 0.9% 100 ML IVPB SCH ×3 (05:25→18:16)
[2018-01-09] MEDS: Triple Antibiotic Oint 1 GM Packet TOP SCH (08:56)
[2018-01-09] MEDS: Aspirin 325 mg Enteric Coated Tablet PO SCH (08:56)
[2018-01-09] MEDS: Famotidine 20 MG TAB PO SCH ×2 (08:56→20:57)
[2018-01-09] MEDS: Potassium Chloride 10 MEQ TAB PO SCH (08:56)
[2018-01-09] MEDS: Lisinopril 5 MG TAB PO SCH (08:56)
[2018-01-09] MEDS: Metoprolol Tartrate 25 MG TAB PO SCH ×2 (08:57→20:57)
[2018-01-09] MEDS: HYDROcodone/Acetaminophen 10/325 mg Tablet PO PRN (08:57)
[2018-01-09] MEDS: NPH, Human Insulin Isophane 300 UNIT/3 ML VIAL SC SCH ×2 (08:58→23:45)
[2018-01-09] MEDS: Polyethylene Glycol 3350 17 GM Packet PO SCH (09:05)
--- NOTE | 2018-01-09 12:40 | PDOC.PN ---
- Subjective Encounter Start Date: 01/09/18 Encounter Start Time: 12:40 Subjective: nsg notes rev, aziza ovn, no new c/o - Objective Vital Signs & Weight: Vital Signs (12 hours) Temp Pulse Resp BP BP BP Pulse Ox 01/09/18 11:12 96.9 F L 67 18 150/87 H 98 01/09/18 08:56 74 150/80 H 01/09/18 07:35 97.8 F 74 18 150/80 H 95 01/09/18 03:29 98.2 F 68 16 169/85 H 98 Weight Weight 130 lb 1.164 oz I&O: 01/08/18 01/09/18 01/10/18 06:59 06:59 06:59 Intake Total 490 1100 1160 Output Total 033 676 9734 Balance -60 500 -290 Result Diagrams: 01/07/18 06:04 01/07/18 06:04 Additional Labs: Accuchecks 01/09/18 01/09/18 01/09/18 11:14 05:37 01:55 POC Glucose 152 H 80 83 01/08/18 01/08/18 01/08/18 21:26 16:40 11:33 POC Glucose 91 75 236 H Phys Exam - Physical Examination Constitutional: NAD lying in hospital bed HEENT: moist MMs eomi Respiratory: no wheezing, no rales, no rhonchi, clear to auscultation bilateral Cardiovascular: RRR, no significant murmur, no rub Gastrointestinal: soft, non-tender, positive bowel sounds Psychiatric: normal affect -: dressing not revmoed from L BKA stump/ surg site Dx/Plan - Plan cont current plan of care, continue antibiotics * POD 1 L BKA pain controlled 1. DM2 stable Cont NPH 10 units BID Cont sliding scale ACHS and 0200 2. Hypokalemia, resolved 3. HTN, stable Cont Lisinopril - increase from 5mg daily to 10mg daily Cont Metoprolol 4. HLD, stable Cont Statins Thank you for this consultation. Will follow. Review of Systems - Medications/Allergies Allergies/Adverse Reactions: Allergies Allergy/AdvReac Type Severity Reaction Status Date / Time No Known Allergies Allergy Verified 09/05/17 02:03 Medications: Current Medications Acetaminophen (Tylenol) 1,000 mg PO Q6H PRN PRN Reason: Moderate to Severe Pain (6-10) Hydrocodone Bitart/Acetaminophen ([place] 10/325) 1 tab PO Q6H PRN PRN Reason: Mild-Moderate Pain (1-5) Last Admin: 01/06/18 00:32 Dose: 1 tab Hydrocodone Bitart/Acetaminophen ([place] 10/325) 2 tab PO Q6H PRN PRN Reason: Severe Pain (7-10) Last Admin: 01/09/18 08:57 Dose: 2 tab Aspirin (Ecotrin) 325 mg PO DAILY [facility] Last Admin: 01/09/18 08:56 Dose: 325 mg Atorvastatin Calcium (Lipitor) 10 mg PO HS [facility] Last Admin: 01/08/18 21:28 Dose: 10 mg Dextrose/Water (Dextrose 50%) 25 gm SLOW IVP PRN PRN PRN Reason: Hypoglycemia Enoxaparin Sodium (Lovenox) 40 mg SC 2100 [facility] Last Admin: 01/08/18 21:29 Dose: 40 mg Famotidine (Pepcid) 20 mg PO BID [facility] Last Admin: 01/09/18 08:56 Dose: 20 mg Glucagon (Glucagon) 1 mg IM PRN PRN PRN Reason: Hypoglycemia Hydralazine HCl (Apresoline) 10 mg SLOW IVP Q4H PRN PRN Reason: SBP > 170 or DBP > 100 Last Admin: 01/06/18 20:32 Dose: 10 mg Dextrose/Water (D5w) 1,000 mls @ 0 mls/hr IV .Q0M PRN PRN Reason: Hypoglycemia Piperacillin Sod/Tazobactam (Sod 3.375 gm/ Sodium Chloride) 100 mls @ 200 mls/ hr IVPB Q6HR [facility] Last Admin: 01/09/18 12:10 Dose: 100 mls Insulin Human Lispro (Humalog) 0 units SC .MODERATE SLIDING SC PRN PRN Reason: Moderate Correctional Scale Last Admin: 01/08/18 12:45 Dose: 4 unit Insulin Human Lispro (Humalog) 0 units SC .BEDTIME SLIDING SC PRN PRN Reason: Bedtime Correctional Scale Insulin Human NPH (Humulin N) 10 unit SC BID [facility] Last Admin: 01/09/18 08:58 Dose: 10 unit Lisinopril (Zestril) 5 mg PO DAILY [facility] Last Admin: 01/09/18 08:56 Dose: 5 mg Metoprolol Tartrate (Lopressor) 25 mg PO BID [facility] Last Admin: 01/09/18 08:57 Dose: 25 mg Morphine Sulfate (Morphine) 2 mg IVP Q2H PRN PRN Reason: Mild Pain (1-3) Last Admin: 01/07/18 11:47 Dose: 2 mg Morphine Sulfate (Morphine) 4 mg IVP Q2H PRN PRN Reason: Moderate Pain (4-6) Neomycin/Polymyxin/Bacitracin (Triple Antibiotic) 0 gm TOP DAILY [facility] Last Admin: 01/09/18 08:56 Dose: 1 gm Ondansetron HCl (Zofran) 4 mg IVP Q6H PRN PRN Reason: Nausea Polyethylene Glycol (Miralax) 17 gm PO DAILY [facility] Last Admin: 01/09/18 09:05 Dose: Not Given Potassium Chloride (Klor-Con 10) 10 meq PO QAM-WM [facility] Last Admin: 01/09/18 08:56 Dose: 10 meq Sodium Chloride (Flush - Normal Saline) 10 ml IVF PRN PRN PRN Reason: Saline Flush Last Admin: 01/08/18 08:51 Dose: 10 ml Tramadol HCl (Ultram) 50 mg PO Q6H PRN PRN Reason: Mild Pain (1-3) Last Admin: 01/05/18 05:59 Dose: 50 mg Tramadol HCl (Ultram) 100 mg PO Q6H PRN PRN Reason: Moderate Pain (4-6)
[2018-01-09] MEDS ORDERED: Lisinopril 5 MG TAB PO SCH (12:42)
[2018-01-09] MEDS ORDERED: Lisinopril 10 MG TAB PO SCH (13:00)
--- NOTE | 2018-01-09 17:35 | PRG ---
DATE OF SERVICE: 01/09/2018 SUBJECTIVE: Mr. Florence is doing well today. OBJECTIVE: VITAL SIGNS: 96.3, 62, 156/98. LUNGS: Clear to auscultation. CARDIAC: Regular rate and rhythm without murmur or gallop. ABDOMEN: Soft and nontender. LABORATORY DATA: White count 6, hemoglobin 10.1 two days ago. Basic metabolic profile normal. Accu -Cheks 80-114. The patient has been seen by the hospitalist. Wound is well healed. Stump pediatric dietician required. Suppl ies for discharge home were provided. ASSESSMENT: Doing well after left below-knee amputation. PLAN: Discharge home. Follow up in my office in 2-3 weeks for staple removal.
[2018-01-09] MEDS ORDERED: Clopidogrel Bisulfate 75 MG TAB ONE (17:51)
[2018-01-09] MEDS: metFORMIN 500 MG TAB PO SCH (18:14)
[2018-01-09] MEDS: Atorvastatin Calcium 10 MG TAB PO SCH (20:57)
[2018-01-09] MEDS: Enoxaparin Sodium 40 MG/0.4 ML SYRINGE SC SCH (20:58)
--- NOTE | 2018-01-09 23:33 | DIS ---
DATE OF ADMISSION: 01/04/2018 DATE OF DISCHARGE: 01/09/2018 DISCHARGE DIAGNOSES: 1. 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 2. Uncontrolled diabetes, noncompliant. PROCEDURES: Guillotine amputation in left leg, subsequent primary closure. Hospitalist consultation for diabetes control and treatment recommendations. DISCHARGE MEDICATIONS: Motrin, Tylenol, and Ultram for pain; metformin 500 b.i.d.; metoprolol 25 b.i .d.; antibiotic ointment to the stump; [id number] MiraLax as needed. FOLLOWUP: Follow up in my office in 2 weeks. HOSPITAL COURSE: A 62-year-old male presenting with uncontrolled diabetes, treating his own chronic wound, presented with gas gangrene in left foot. He underwent guillotine amputation and subsequent p rimary closure. He was seen by Hospitalist, discharged home with medications. Follow up with me in 2 weeks.
[2018-01-10] MEDS: hydrALAZINE 20 MG/ML VIAL SLOW IVP PRN (00:58)
[2018-01-10] MEDS: Piperacillin/Tazobactam 3.375 GM in Sodium Chloride 0.9% 100 ML IVPB SCH (01:03)
[2018-01-10] MEDS: Metoprolol Tartrate 25 MG TAB PO SCH (08:17)
[2018-01-10] MEDS: Polyethylene Glycol 3350 17 GM Packet PO SCH (08:17)
[2018-01-10] MEDS: metFORMIN 500 MG TAB PO SCH (08:17)
[2018-01-10] MEDS: Potassium Chloride 10 MEQ TAB PO SCH (08:17)
[2018-01-10] MEDS: Famotidine 20 MG TAB PO SCH (08:18)
[2018-01-10] MEDS: Aspirin 325 mg Enteric Coated Tablet PO SCH (08:18)
[2018-01-10] MEDS: NPH, Human Insulin Isophane 300 UNIT/3 ML VIAL SC SCH (08:22)
[2018-01-10] MEDS: Triple Antibiotic Oint 1 GM Packet TOP SCH (08:22)
[2018-01-10 08:24] VITALS: BP 131/80
[2018-01-10 08:36] VITALS: TEMP 97.8
[2018-01-10] MEDS ORDERED: Lisinopril 10 MG TAB PO SCH (09:00)
--- NOTE | 2018-01-10 21:00 | EKG ---
Test Reason : FOOT INFECTION Blood Pressure : / mmHG Vent. Rate : 101 BPM Atrial Rate : 101 BPM P-R Int : 134 ms QRS Dur : 082 ms QT Int : 360 ms P-R-T Axes : 058 012 050 degrees QTc Int : 466 ms Sinus tachycardia Otherwise normal ECG Confirmed by MINI STAFFORD, ARIS ([id number]), associate entertainment editor SETH GAMEZ ([id number] on 01/10/2018 8:59:22 PM Referred By: MIRIAN MORSE Confirmed By:ARIS MORSE MD
== END 2018-01-10 10:54 | disposition home or self-care (01) | DRG 239 ==
LOC: ERS 10:19 → SDC 14:34 → SURG B 16:06
PROVIDERS: ADMIT Specialist; ATTEND Specialist
PROC: 0Y6N0Z0 Detachment at Left Foot, Complete, Open Approach (ICD-10-PCS; principal; 2018-01-04)
PROC: 0Y6J0Z1 Detachment at Left Lower Leg, High, Open Approach (ICD-10-PCS; 2018-01-07)
DX: E11.52 Type 2 diabetes mellitus with diabetic peripheral angiopathy with gangrene (principal); A48.0 Gas gangrene; L03.116 Cellulitis of left lower limb; E11.65 Type 2 diabetes mellitus with hyperglycemia; I10 Essential (primary) hypertension; B18.2 Chronic viral hepatitis C; E87.6 Hypokalemia; E83.42 Hypomagnesemia; E78.5 Hyperlipidemia, unspecified; E11.621 Type 2 diabetes mellitus with foot ulcer; L97.529 Non-pressure chronic ulcer of other part of left foot with unspecified severity; Z91.19 Patient's noncompliance with other medical treatment and regimen; Z79.82 Long term (current) use of aspirin; Z79.4 Long term (current) use of insulin; Z79.899 Other long term (current) drug therapy
CPT/HCPCS: 36415; 36416; 71045; 80048; 80053; 82550; 83036; 83605; 83735; 85025; 85610; 85652; 85730; 86140; 86850; 86900; 86901; 87040; 88305; 88307; 88311; 93005; 96361; 96365; 96367; G8978-GP-CL; G8979-GP-CJ; G8987-GO-CI; G8988-GO-CI; G8989-GO-CI; J0360; J0670; J1650; J1815; J2001; J2185; J2250; J2270; J2543; J2704; J3010; J3370; J3475; J7050; L8440

== ENCOUNTER 2018-01-16 14:23 | Emergency (ER) | payer SELFPAY ==
[2018-01-16 16:10] LABS: #Eosinphils 0.1 thou/uL (0.0-0.7); #Lymphocytes 2.1 thou/uL (1.20-3.40); #Monocytes 0.7 thou/uL (0.11-0.59); #Neutrophils 4.9 thou/uL (1.40-6.50); %Basophils 0.6 % (0.0-1.0); %Eosinophils 1.3 % (0.0-10.0); %Lymphocytes 26.7 % (21.0-51.0); %Monocytes 8.8 % (0.0-10.0); %Neutrophils 62.7 % (42.0-75.0); Hemoglobin 9.4 g/dL (14.0-18.0); Mean Corpuscular HGB CONC 34.7 g/dL (32.0-36.0); Mean Corpuscular Hemoglobin 33.5 pg (27.0-31.0); Mean Corpuscular Volume 96.5 fL (78.0-98.0); Mean Platelet Volume 6.3 fL (7.4-10.4); Platelet Count 291 thou/uL (130-400); RBC Distribution Width 12.9 % (11.5-14.5); White Blood Cell (WBC) Count 7.8 thou/uL (4.8-10.8)
[2018-01-16 16:35] LABS: ALT (SGPT) 37 U/L (8-55); AST (SGOT) 51 U/L (5-34); Alkaline Phosphatase 96 U/L (40-150); Anion Gap 11 mmol/L (10-20); BUN (Urea Nitrogen) 7 mg/dL (8.4-25.7); Bilirubin, Total 0.8 mg/dL (0.2-1.2); Calc. Creatinine Clearance 0 mL/min (70-130); Calcium 8.7 mg/dL (7.8-10.44); Carbon Dioxide 23 mmol/L (22-29); Chloride 105 mmol/L (98-107); Estimated GFR-MDRD Greater than 90; Globulin 4.8 g/dL (2.4-3.5); Glucose 139 mg/dL (70-105); Potassium 4.3 mmol/L (3.5-5.1); Protein, Total 7.8 g/dL (6.0-8.3); Sodium 135 mmol/L (136-145)
== END 2018-01-16 17:37 | disposition home or self-care (01) ==
LOC: ERS 14:23
DX: T81.89XA Other complications of procedures, not elsewhere classified, initial encounter (principal); E11.9 Type 2 diabetes mellitus without complications
CPT/HCPCS: 36415; 80053; 83605; 85025; 99283

== ENCOUNTER 2020-04-17 17:09 | Emergency (ER) | payer OTHER ==
[2020-04-17 17:47] LABS: #Eosinphils 0.2 thou/uL (0.0-0.7); #Lymphocytes 1.4 thou/uL (1.20-3.40); #Monocytes 0.5 thou/uL (0.11-0.59); %Basophils 0.4 % (0.0-1.0); %Eosinophils 2.9 % (0.0-10.0); %Lymphocytes 22.5 % (21.0-51.0); %Monocytes 8.3 % (0.0-10.0); %Neutrophils 65.9 % (42.0-75.0); Hemoglobin 7.7 g/dL (14.0-18.0); Mean Corpuscular Hemoglobin 30.3 pg (27.0-31.0); Mean Corpuscular Volume 91.9 fL (78.0-98.0); Mean Platelet Volume 7.5 fL (7.4-10.4); Platelet Count 244 thou/uL (130-400); RBC Distribution Width 13.1 % (11.5-14.5); Red Blood Cell (RBC) Count 2.53 mill/uL (4.70-6.10)
[2020-04-17 17:55] LABS: Bacteria/HPF None Seen HPF (None Seen); Bilirubin Negative (Negative); Blood, Urine Negative (Negative); Clarity Clear (Clear); Glucose, Urine (Dipstick) 300 mg/dL (Negative); Ketone, Urine Negative (Negative); Leukocyte Negative Leu/uL (Negative); Nitrite Negative (Negative); Protein, Urine (Dipstick) 300 mg/dL (Neg-Trace); RBC/HPF None Seen HPF (0-3); Specific Gravity, Urine 1.017 (1.002-1.036); Squamous Epithelial None Seen HPF (0-3); Urobilinogen Normal mg/dL (Less than 2); WBC/HPF 0-3 HPF (0-3); pH, Urine 6.5 (5.0-9.0)
[2020-04-17 18:10] LABS: ALT (SGPT) 19 U/L (8-55); AST (SGOT) 26 U/L (5-34); Albumin 2.9 g/dL (3.4-4.8); Alkaline Phosphatase 80 U/L (40-110); Anion Gap 13 mmol/L (10-20); BUN (Urea Nitrogen) 48 mg/dL (8.4-25.7); Bilirubin, Total 0.4 mg/dL (0.2-1.2); Calc. Creatinine Clearance 0 mL/min (70-130); Calcium 8.1 mg/dL (7.8-10.44); Carbon Dioxide 24 mmol/L (23-31); Chloride 109 mmol/L (98-107); Estimated GFR-MDRD 20; Globulin 3.1 g/dL (2.4-3.5); Glucose 189 mg/dL (80-115); Potassium 4.4 mmol/L (3.5-5.1); Sodium 142 mmol/L (136-145)
[2020-04-17] MEDS ORDERED: Lidocaine 1% PF 5 ML VIAL ONE (18:17)
[2020-04-17] MEDS ORDERED: cefTRIAXone\\ROCEPHIN 1 GM VIAL ONE (18:17)
== END 2020-04-17 19:27 | disposition home or self-care (01) ==
LOC: ERS 17:09
DX: N30.00 Acute cystitis without hematuria (principal); I10 Essential (primary) hypertension; E11.9 Type 2 diabetes mellitus without complications; Z79.899 Other long term (current) drug therapy
CPT/HCPCS: 51701; 80053; 81003; 81015; 85025; 87086; 93005; 96372; J0696